=== PATIENT | male | born 1940 | race Caucasian/White ===

== ENCOUNTER → 2016-11-21 | Outpatient (CLI) | payer OTHER ==
[~2016-11-21] MED LIST: AGG PO; ALBUAER19 INH; ALEN70TA2 PO; ATV5 PO; BIOT1TAB2 PO; BIOTCAP2 PO; CALC600T9 PO; CALCTAB65 PO; CIPR-255 PO; CITA10TA8 PO; COEN100C3 PO; DAPT500I IV; DUTA1CAP3 PO; ENZA1CAP PO; FSM70 PO; GABA-112 PO; GLUCTAB7 PO; HYDR2.5C37 TOP; LEUP30IN3 INJ; MULT-506 PO; MULTCAP31 PO; OMEG10007 PO; PRD/25 PO; PROCHLORPERAZINE PO; PSYL55.43 PO; TRAM-10 PO; TYL325X PO; UMEC1AER INH; VITBC PO; VNTHFA/IN INH; ZCR40 PO
== END | disposition home or self-care (01) ==
LOC: C.MAMM 13:15
PROVIDERS: ATTEND Family Medicine
DX: M81.0 Age-related osteoporosis without current pathological fracture (principal)

== ENCOUNTER 2016-11-25 16:00 | Inpatient (IN) | payer OTHER ==
[~2016-11-25] VITALS: Ht 162.6 cm; Wt 65.8 kg
[~2016-11-25 16:00] MED LIST changes: -ATV5 PO; -BIOT1TAB2 PO; -BIOTCAP2 PO; -CALCTAB65 PO; -DAPT500I IV; -ENZA1CAP PO; -FSM70 PO; -OMEG10007 PO; -TRAM-10 PO; -VNTHFA/IN INH
--- NOTE | 2016-11-25 16:36 | EMERGENCY ROOM VISIT NOTE ---
History First contact with patient: 16:20 Chief Complaint: REFERRED BY DOCTOR Stated Complaint: KIDNEY PROBLEMS, SENT BY DOCTOR History of Present Illness The patient is a 76 year old male who presents to the Emergency Room upon referral by his PCP after routine lab work showed acutely elevated creatinine of 6.4 from a baseline of ~2.1. Of note the patient has a background history of prostate cancer s/p nephrostomy in Dec 2015 (performed in [place]), s/p ureteral stent insertion in Aug 2016 ( performed by [facility] urologist, Dr. Holden). Currently, the patient is relatively asymptomatic. He admits to decreased volumes of urine being produced in the last few days. When asked about PO intake of fluids, he admits that he doesn't drink a lot of water, perhaps 2-3 cups of coffee daily and 4-5 glasses of water daily, on his 's urging. She states that he has recently (~3 weeks ago) been started on Meloxicam and Zandia , and he received strict instructions to drink 10-12 glasses of water daily, which he does not do. Upon receiving his first set of lab results today since commencing the medication, patient's PCP Dr. Stewart, advised patient to stop Meloxicam and present to ED. Patient has longstanding frequency symptoms and he believes that this symptom has persisted in the last few days, with only a decrease in urine volume. He denies dysuria and hematuria. He is unsure of change in concentration or colour of his urine. He claims no flank pain, although he has long standing back pain. He also admits to some testicular soreness which he has been previously told is a result from pelvic fullness secondary to enlarged lymph nodes. He has had generalized weakness with occasional nausea and dizziness without focal neurological complaints of late. Patient denies history of kidney stone. Review of Systems See HPI for pertinent positives and negatives. A total of ten systems were reviewed and were otherwise negative. Past Medical/Surgical History Medical Problems: (1) Acute renal failure (2) Hyperkalemia Family History Patient reports no known family medical history. Social History Smoking Status: Current Every Day Smoker Marital Status: Housing Status: lives with family Occupation Status: retired Current/Historical Medications Scheduled Albuterol Inhaler (Ventolin Inhaler), 2 PUFFS INH Q4H Alendronate Sodium (Fosamax), 70 MG PO WK Biotin (Biotin 5000), 1 CAP PO DAILY Calcium Carbonate-Vitamin D (Calcium + D), 1 TAB PO NOON/HS Citalopram Hydrobromide (Celexa), 10 MG PO QPM Coenzyme Q10 (Ubidecarenone) (Co Q-10), 100 MG PO QPM Dipyridamole/Aspirin (Aggrenox 25-200 mg), 1 CAP PO BID Dutasteride (Dutasteride), 0.5 MG PO QAM Enzalutamide (Xtandi), 4 TABS PO DAILY Fish Oil ([place]-3), 1 CAP PO DAILY Gabapentin (Neurontin), 100 MG PO BID Iwcovcuouvz-Edvxpvkwklx-Sux C- (Glucosamine Chondroitin), 1 TAB PO NOON Hydrocortisone 2.5% (Rectal) (Anusol-Hc 2.5%), 1 APPLN TOP PRN Leuprolide Acetate (Lupron Depot), 1 DOSE INJ [id number] Multiple Vitamins W/ Minerals (Ocuvite Lutein), 1 CAP PO NOON Multivitamin (Multivitamin), 1 TAB PO NOON Psyllium (Metamucil Powder), 1 PACK PO DAILY Simvastatin (Simvastatin), 40 MG PO QPM Umeclidinium-Vilanterol (Anoro Ellipta 62.5-25 Mcg/INH), 1 PUFF INH DAILY Vitamin B Complex (Vitamin B Complex), 1 TAB PO NOON Scheduled PRN Tramadol (Ultram), 50-100 MG PO QID PRN for Pain Allergies Coded Allergies: Azithromycin (Verified Allergy, Unknown, HEART STOPPED, 09/12/16) Horse Serum Proteins (Verified Allergy, Unknown, RASH,JOINTS WERE AFFECTED , 09/12/16) Tetanus Toxoid (Verified Allergy, Unknown, UNKNOWN, 09/12/16) Physical Exam Vital Signs Date Time Temp Pulse Resp B/P Pulse Ox O2 Delivery O2 Flow Rate FiO2 11/25/16 20:51 79 18 184/93 95 Room Air 11/25/16 19:52 76 18 189/102 95 Room Air 11/25/16 18:50 73 22 185/93 97 Room Air 11/25/16 17:39 68 22 177/92 98 Room Air 11/25/16 16:02 36.5 74 22 173/87 96 Room Air Physical Exam GENERAL: alert, well appearing, thin, sitting in bed, no acute distress, non- toxic HEAD: Normocephalic, atraumatic. No sinus tenderness. EYES: PERRL, EOMI, normal conjunctiva OROPHARYNX: no exudate, no erythema, lips, buccal mucosa, and tongue normal and mucous membranes are dry NECK: supple, no nuchal rigidity, no adenopathy, non-tender LUNGS: Clear to auscultation. Normal chest wall mechanics, good air entry. No crepitations, crackles, or wheezes HEART: no murmurs, S1 normal and S2 normal CHEST: No reproducible tenderness. ABDOMEN: abdomen soft, non-tender, some suprapubic tenderness on palpation, normo-active bowel sounds, no masses, no rebound or guarding. BACK: Back is symmetrical on inspection, no deformities, mild midline tenderness , no CVA tenderness. SKIN: Warm, pink, dry. No erythema, rashes, or bruising. EXTREMITIES: Grossly normal. Moving all 4 limbs, strength 5/5. No pitting edema. Calves non tender. NEURO: Alert, Ox3. No focal deficits. Normal sensorium, cranial nerves II-XII grossly intact, normal speech. PSYCH: Mood and affect appropriate. Medical Decision & Procedures ER Provider Diagnostic Interpretation: ABDOMEN AND PELVIS CT WITHOUT CONTRAST CT DOSE: 443.29 mGy.cm HISTORY: worsening renal function. assess ureter patency TECHNIQUE: Multiaxial CT images of the abdomen and pelvis were performed without the use of intravenous and oral contrast according to the standard department stone protocol. COMPARISON STUDY: Abdomen and pelvis CT 10/30/2016. FINDINGS: Similar appearance of the large mass extending superiorly from the prostate gland which measures 8.0 x 7.6 cm. There is probable adjacent to the posterior bladder wall with right bladder wall thickening. This is also unchanged. A right ureteral stent is in good position. Moderate to severe right-sided hydroureteronephrosis remains unchanged. There is been interval development of mild left hydroureteronephrosis to the level of the distal ureter as it crosses the pelvic mass. This likely represents interval invasion/compression from the large mass. The sigmoid colon is draped superiorly over the mass. There are no dilated loops of bowel to suggest an obstruction at this time. Colonic diverticulosis. Small amount of fluid within the anterior pelvis has developed in the interval. The right pelvic sidewall lymphadenopathy is also unchanged. This measures 3.5 cm. Normal appendix. No bowel wall thickening or obstruction. Trace bilateral pleural effusions. Small fat-containing right-sided Bochdalek hernia. Bibasilar densities favor atelectasis. No pneumoperitoneum. No pneumatosis. No suspicious lytic or blastic osseous lesions. The unenhanced liver, gallbladder, pancreas, and adrenal glands are unremarkable. Stable appearance to the spleen. Note, the mass encases the distal right ureter/stent. This is also unchanged. IMPRESSION: 1. Similar appearance to the large mass extending superiorly from the prostate gland and right pelvic sidewall lymphadenopathy. 2. Interval development of mild left hydroureteronephrosis to the level of the distal left ureter as it crosses the large mass. This likely represents compression or invasion from the mass. 3. No change in the moderate to severe right-sided hydroureteronephrosis. The right ureteral stent is in good position. 4. Trace bilateral pleural effusions. Laboratory Results 11/25/16 17:10 Red Blood Count 3.18, Mean Corpuscular Volume 88.7, Mean Corpuscular Hemoglobin 29.2, Mean Corpuscular Hemoglobin Concent 33.0, Mean Platelet Volume 9.8, Neutrophils (%) (Auto) 55.0, Lymphocytes (%) (Auto) 28.0, Monocytes (%) (Auto) 9.7, Eosinophils (%) (Auto) 6.7, Basophils (%) (Auto) 0.4, Neutrophils # (Auto) 2.71, Lymphocytes # (Auto) 1.38, Monocytes # (Auto) 0.48, Eosinophils # (Auto) 0.33, Basophils # (Auto) 0.02 Test 11/25/16 17:10 White Blood Count 4.93 K/uL (4.8-10.8) Red Blood Count 3.18 M/uL (4.7-6.1) Hemoglobin 9.3 g/dL (14.0-18.0) Hematocrit 28.2 % (42-52) Mean Corpuscular Volume 88.7 fL (80-100) Mean Corpuscular Hemoglobin 29.2 pg (25-34) Mean Corpuscular Hemoglobin Concent 33.0 g/dl (32-36) Platelet Count 253 K/uL (130-400) Mean Platelet Volume 9.8 fL (7.4-10.4) Neutrophils (%) (Auto) 55.0 % Lymphocytes (%) (Auto) 28.0 % Monocytes (%) (Auto) 9.7 % Eosinophils (%) (Auto) 6.7 % Basophils (%) (Auto) 0.4 % Neutrophils # (Auto) 2.71 K/uL (1.4-6.5) Lymphocytes # (Auto) 1.38 K/uL (1.2-3.4) Monocytes # (Auto) 0.48 K/uL (0.11-0.59) Eosinophils # (Auto) 0.33 K/uL (0-0.5) Basophils # (Auto) 0.02 K/uL (0-0.2) RDW Standard Deviation 51.8 fL (36.4-46.3) RDW Coefficient of Variation 15.8 % (11.5-14.5) Immature Granulocyte % (Auto) 0.2 % Immature Granulocyte # (Auto) 0.01 K/uL (0.00-0.02) Urine Color YELLOW Urine Appearance CLEAR (CLEAR) Urine pH 5.5 (4.5-7.5) Urine Specific [place] 1.014 (1.000-1.030) Urine Protein TRACE (NEG) Urine Glucose (UA) NEG (NEG) Urine Ketones NEG (NEG) Urine Occult Blood 2+ (NEG) Urine Nitrite NEG (NEG) Urine Bilirubin NEG (NEG) Urine Urobilinogen NEG (NEG) Urine Leukocyte Esterase LARGE (NEG) Urine WBC (Auto) >30 /hpf (0-5) Urine RBC (Auto) 10-30 /hpf (0-4) Urine Hyaline Casts (Auto) 1-5 /lpf (0-5) Urine Epithelial Cells (Auto) >30 /lpf (0-5) Urine Bacteria (Auto) NEG (NEG) Urine Renal Epithelial Cells /lpf (0-5) Phosphorus Level 5.0 mg/dl (2.5-4.9) Magnesium Level 2.8 mg/dl (1.8-2.4) Total Bilirubin 0.2 mg/dl (0.2-1) Direct Bilirubin < 0.1 mg/dl (0-0.2) Aspartate Amino Transf (AST/SGOT) 34 U/L (15-37) Alanine Aminotransferase (ALT/SGPT) 31 U/L (12-78) Alkaline Phosphatase 92 U/L (45-117) Total Protein 6.4 gm/dl (6.4-8.2) Albumin 3.1 gm/dl (3.4-5.0) Medications Administered Medications (Trade) Dose Ordered Sig/Clare Route Start Time Stop Time Status Last Admin Dose Admin Sodium Chloride (Nss 1000ml) 1,000 ml @ 500 mls/hr Q2H IV 11/25/16 17:30 11/25/16 17:38 DC 11/25/16 17:38 500 MLS/HR ECG Indication: weakness Rhythm: normal sinus Findings: no acute ischemic change, no ectopy, other (Prolonged HI interval) Comparison ECG Date: no prior available Medical Decision 76 year old male presented with acute renal failure The patient was evaluated in room C5. A complete history and physical exam was performed. Etiologies such as dehydration, infection, obstruction, electrolyte abnormalities, metabolic abnormalities, drug-induced etc. were entertained. Patient was given declined analgesia for symptom relief. 1L of IV normal saline was given to improve hydration status. EKG showed normal sinus rhythm with mild HI prolongation, but no signs of ischemic changes Lab work was performed. CBC showed anemia with hemoglobin 9.3 but no leukocytosis. BMP showed hyperkalemia, creatinine 6.3, hypercalcemia and elevated levels of magnesium and phosphorus, LFTs were all within normal limits. Urine screen was contaminated but urinalysis showed trace protein and occult blood Urology was consulted and advised for CT scan. CT abdomen pelvis showed similar appearance to the large mass extending superiorly from the prostate gland and right pelvic sidewall lymphadenopathy; interval development of mild left hydroureteronephrosis, likely representing compression or invasion from the mass. No change was noted in the moderate to severe right-sided hydroureteronephrosis with the right ureteral stent observed to be in good position. Trace bilateral pleural effusions were also seen. Likely diagnosis is acute renal failure contributed by medication and dehydration. As such, case consulted with [facility] hospitalist, Dr. Lynn, who was agreeable to assess the patient for admission. Patient and family understood and agreeable with care plan. Departure Information Referrals Jesus Stewart M.D. (PCP) Patient Instructions A Signature Page, My [facility]
--- NOTE | 2016-11-25 17:05 | EMERGENCY ROOM VISIT NOTE ---
ED Visit Note First contact with patient: 16:20 Patient evaluated with resident. 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 Holden presents to the emergency room with family after outpatient laboratory revealed a significantly elevated creatinine. He was advised to present to the emergency room for admission. Patient and family note increasing generalized weakness with occasional nausea and dizziness without focal neuro complaints. Patient noted to be on Zandia and meloxicam for back pain. Hospital admission arranged and consultation obtained with Urology who advised CT to assess ureters/extent of prostate cancer.
[2016-11-25] MEDS ORDERED: ENZA1CAP PO (17:27)
[2016-11-25] MEDS ORDERED: OMEG10007 PO (17:27)
[2016-11-25] MEDS ORDERED: TRAM-10 PO (17:27)
[2016-11-25] MEDS ORDERED: BIOTCAP2 PO (17:27)
[2016-11-25] MEDS ORDERED: AGG PO (17:27)
[2016-11-25] MEDS ORDERED: SODIUM CHLORIDE 0.9% 1000ML 1,000 ML IV SCH (17:30)
[2016-11-25] MEDS ORDERED: SODIUM CHLORIDE 0.9% 1000ML 1,000 ML IV STA (17:37)
[2016-11-25 17:45] LABS: BASO % 0.4 %; BASO ABS # 0.02 K/uL (0-0.2); COMPLETE YES; EOS % 6.7 %; HEMATOCRIT 28.2 % (42-52); IG% 0.2 %; LYMPH ABS # 1.38 K/uL (1.2-3.4); MEAN CELL VOLUME 88.7 fL (80-100); MEAN CORPUSCULAR HEMOGLOBIN 29.2 pg (25-34); MEAN PLATELET VOLUME 9.8 fL (7.4-10.4); MONO % 9.7 %; PLATELET COUNT 253 K/uL (130-400); RED BLOOD COUNT 3.18 M/uL (4.7-6.1); WHITE BLOOD COUNT 4.93 K/uL (4.8-10.8)
[2016-11-25 17:54] LABS: URINE APPEARANCE CLEAR (CLEAR); URINE BILIRUBIN NEG (NEG); URINE COLOR YELLOW; URINE EPITHELIAL CELL AUTO >30 /lpf (0-5); URINE NITRITE NEG (NEG); URINE PH 5.5 (4.5-7.5); URINE SPECIFIC GRAVITY 1.014 (1.000-1.030); UROBILINOGEN NEG (NEG)
[2016-11-25 17:56] LABS: MANUAL MICROSCOPIC REQUIRED? NO; REVIEW REQ? YES
[2016-11-25 18:26] LABS: BUN/CREATININE RATIO 8.9 (10-20); CALCIUM 10.6 mg/dl (8.5-10.1); MAGNESIUM 2.8 mg/dl (1.8-2.4)
[2016-11-25 18:27] LABS: CREATININE 6.3 mg/dl (0.60-1.40)
[2016-11-25 20:16] LABS: ALKALINE PHOSPHATASE 92 U/L (45-117); ALT/SGPT 31 U/L (12-78); AST/SGOT 34 U/L (15-37)
--- NOTE | 2016-11-25 20:37 | DIAGNOSTIC IMAGING REPORT ---
ABDOMEN AND PELVIS CT WITHOUT CONTRAST CT DOSE: 443.29 mGy.cm HISTORY: worsening renal function. assess ureter patency TECHNIQUE: Multiaxial CT images of the abdomen and pelvis were performed without the use of intravenous and oral contrast according to the standard department stone protocol. COMPARISON STUDY: Abdomen and pelvis CT 10/30/2016. FINDINGS: Similar appearance of the large mass extending superiorly from the prostate gland which measures 8.0 x 7.6 cm. There is probable adjacent to the posterior bladder wall with right bladder wall thickening. This is also unchanged. A right ureteral stent is in good position. Moderate to severe right-sided hydroureteronephrosis remains unchanged. There is been interval development of mild left hydroureteronephrosis to the level of the distal ureter as it crosses the pelvic mass. This likely represents interval invasion/compression from the large mass. The sigmoid colon is draped superiorly over the mass. There are no dilated loops of bowel to suggest an obstruction at this time. Colonic diverticulosis. Small amount of fluid within the anterior pelvis has developed in the interval. The right pelvic sidewall lymphadenopathy is also unchanged. This measures 3.5 cm. Normal appendix. No bowel wall thickening or obstruction. Trace bilateral pleural effusions. Small fat-containing right-sided Bochdalek hernia. Bibasilar densities favor atelectasis. No pneumoperitoneum. No pneumatosis. No suspicious lytic or blastic osseous lesions. The unenhanced liver, gallbladder, pancreas, and adrenal glands are unremarkable. Stable appearance to the spleen. Note, the mass encases the distal right ureter/stent. This is also unchanged. IMPRESSION: 1. Similar appearance to the large mass extending superiorly from the prostate gland and right pelvic sidewall lymphadenopathy. 2. Interval development of mild left hydroureteronephrosis to the level of the distal left ureter as it crosses the large mass. This likely represents compression or invasion from the mass. 3. No change in the moderate to severe right-sided hydroureteronephrosis. The right ureteral stent is in good position. 4. Trace bilateral pleural effusions. Electronically signed by: Pablo Tim M.D. 11/25/2016 8:35 PM Dictated Date/Time: 11/25/2016 8:26 PM
[2016-11-25] MEDS: ALBUTEROL HFA 8 GM INHALER INH SCH (21:00)
[2016-11-25] MEDS ORDERED: ACETAMINOPHEN 325 MG TAB PO PRN (21:00)
[2016-11-25] MEDS ORDERED: TRAMADOL HCL 50 MG TAB PO PRN (21:00)
[2016-11-25] MEDS ORDERED: ZOLPIDEM TARTRATE 5 MG TAB PO PRN (21:00)
[2016-11-25] MEDS ORDERED: SIMVASTATIN 40 MG TAB PO SCH (21:00)
[2016-11-25] MEDS ORDERED: CITALOPRAM 20 MG TAB PO SCH (21:00)
[2016-11-25] MEDS ORDERED: HYDROCORTISONE HC 2.5% CRM 30GM TUBE EXT PRN (21:00)
--- NOTE | 2016-11-25 21:36 | Urology Consultation ---
History General Date of Service: Nov 25, 2016. Primary Care Physician: Jesus Stewart M.D. History of Present Illness Patient's a 76-year-old white male with hormone refractory metastatic prostate cancer. He was seen in our office by my partner in October 2016 and was put on Xtandi and meloxicam. He says since starting these 2 medications he's not feeling well. Recently his urine output has declined. He does have some back pain which he has had in the past. He denies any flank pain he's had no fevers. He was seen by his primary care physician today because he was feeling poorly blood work showed that he is in acute renal failure with a creatinine of 6 he was sent to the emergency room here for further evaluation. CT scan was done which showed no change in the right-sided hydronephrosis when compared to the CT scan from October which I reviewed both x-rays myself but he is now developing left-sided hydronephrosis which is new. Laboratory Last 24 Hours Test 11/25/16 17:10 11/25/16 21:04 White Blood Count 4.93 K/uL Red Blood Count 3.18 M/uL Hemoglobin 9.3 g/dL Hematocrit 28.2 % Mean Corpuscular Volume 88.7 fL Mean Corpuscular Hemoglobin 29.2 pg Mean Corpuscular Hemoglobin Concent 33.0 g/dl Platelet Count 253 K/uL Mean Platelet Volume 9.8 fL Neutrophils (%) (Auto) 55.0 % Lymphocytes (%) (Auto) 28.0 % Monocytes (%) (Auto) 9.7 % Eosinophils (%) (Auto) 6.7 % Basophils (%) (Auto) 0.4 % Neutrophils # (Auto) 2.71 K/uL Lymphocytes # (Auto) 1.38 K/uL Monocytes # (Auto) 0.48 K/uL Eosinophils # (Auto) 0.33 K/uL Basophils # (Auto) 0.02 K/uL RDW Standard Deviation 51.8 fL RDW Coefficient of Variation 15.8 % Immature Granulocyte % (Auto) 0.2 % Immature Granulocyte # (Auto) 0.01 K/uL Urine Color YELLOW Urine Appearance CLEAR Urine pH 5.5 Urine Specific [place] 1.014 Urine Protein TRACE Urine Glucose (UA) NEG Urine Ketones NEG Urine Occult Blood 2+ Urine Nitrite NEG Urine Bilirubin NEG Urine Urobilinogen NEG Urine Leukocyte Esterase LARGE Urine WBC (Auto) >30 /hpf Urine RBC (Auto) 10-30 /hpf Urine Hyaline Casts (Auto) 1-5 /lpf Urine Epithelial Cells (Auto) >30 /lpf Urine Bacteria (Auto) NEG Urine Renal Epithelial Cells /lpf Sodium Level 142 mmol/L Potassium Level 6.0 mmol/L Chloride Level 110 mmol/L Carbon Dioxide Level 23 mmol/L Anion Gap 9.0 mmol/L Blood Urea Nitrogen 56 mg/dl Creatinine 6.30 mg/dl Est Creatinine Clear Calc Drug Dose 8.4 ml/min Estimated GFR () 9.1 Estimated GFR (Non- 7.9 BUN/Creatinine Ratio 8.9 Random Glucose 83 mg/dl Calcium Level 10.6 mg/dl Phosphorus Level 5.0 mg/dl Magnesium Level 2.8 mg/dl Total Bilirubin 0.2 mg/dl Direct Bilirubin < 0.1 mg/dl Aspartate Amino Transf (AST/SGOT) 34 U/L Alanine Aminotransferase (ALT/SGPT) 31 U/L Alkaline Phosphatase 92 U/L Total Protein 6.4 gm/dl Albumin 3.1 gm/dl Past History cancer - prostate, CVA/TIA/stroke, hypertension, other Past Surgical History: orthopedic surgery, other Family History Patient reports no known family medical history. Social History Hx Tobacco Use In Past Year?: Yes (SMOKES 1/2 PPD X 60 YRS ) Alcohol: never Marital status: Housing status: lives with family Occupation status: retired Allergies Coded Allergies: Azithromycin (Verified Allergy, Unknown, HEART STOPPED, 09/12/16) Horse Serum Proteins (Verified Allergy, Unknown, RASH,JOINTS WERE AFFECTED , 09/12/16) Tetanus Toxoid (Verified Allergy, Unknown, UNKNOWN, 09/12/16) Medications Home Medications: Home Meds and Scripts Medications Dose Route/Sig Max Daily Dose Days Date Category Dose Instructions Xtandi (Enzalutamide) 40 Mg Cap 4 Tabs PO DAILY 11/25/16 Reported Ultram (Tramadol HCl) 50 Mg Tab 50-100 Mg PO QID PRN 11/25/16 Reported [place]-3 (Fish Oil) 1 Ea Cap 1 Cap PO DAILY 11/25/16 Reported Biotin 5000 (Biotin) 5 Mg Cap 1 Cap PO DAILY 11/25/16 Reported Aggrenox 25-200 mg (Dipyridamole/Aspirin) 1 Cap Cap 1 Cap PO BID 11/25/16 Reported Lupron Depot (Leuprolide Acetate) 30 Mg Kit 1 Dose INJ [id number] 08/30/16 Reported LAST DOSE 1 MONTH AGO Multivitamin (Multivitamins) Tab 1 Tab PO NOON 08/30/16 Reported Anusol-Hc 2.5% (Hydrocortisone 2.5% (Rectal)) 2.5 % Cre 1 Appln TOP PRN 7 08/30/16 Reported Neurontin (Gabapentin) 100 Mg Cap 100 Mg PO BID 08/30/16 Reported Calcium + D (Calcium Carbonate-Vitamin D) 1 Tab Tab 1 Tab PO NOON/HS 08/30/16 Reported Celexa (Citalopram Hydrobromide) 10 Mg Tab 10 Mg PO QPM 08/30/16 Reported Anoro Ellipta 62.5-25 Mcg/INH (Umeclidinium-Vilanterol) 1 Aer Aer 1 Puff INH DAILY 08/30/16 Reported Metamucil Powder (Psyllium Hydrophilic Mucilloid) Powd 1 Pack PO DAILY 01/10/16 Reported Ventolin Inhaler (Albuterol) Aers 2 Puffs INH Q4H 09/26/15 Reported Simvastatin 40 Mg Tab 40 Mg PO QPM 09/26/15 Reported Ocuvite Lutein (Multiple Vitamins W/ Minerals) 1 Cap Cap 1 Cap PO NOON 09/26/15 Reported Glucosamine Chondroitin (Ricrsnlsfxa-Inygnfeagly-Oyx C-) 1 Tab Tab 1 Tab PO NOON 09/26/15 Reported Dutasteride 0.5 Mg Cap 0.5 Mg PO QAM 09/26/15 Reported Co Q-10 (Coenzyme Q10 (Ubidecarenone)) 100 Mg Cap 100 Mg PO QPM 09/26/15 Reported Vitamin B Complex 1 Tab Tab 1 Tab PO NOON 09/26/15 Reported Fosamax (Alendronate Sodium) 70 Mg Tab 70 Mg PO WK 09/26/15 Reported WEDNESDAYS Inpatient Medications: Current Inpatient Medications Medications (Trade) Dose Ordered Sig/Clare Route Start Time Stop Time Status Last Admin Dose Admin Sodium Chloride (Nss 1000ml) 1,000 ml @ 100 mls/hr Q10H IV 11/25/16 20:52 12/25/16 20:51 UNV Acetaminophen (Tylenol Tab) 650 mg Q4H PRN PO 11/25/16 21:00 12/25/16 20:59 Zolpidem Tartrate (Ambien Tab) 5 mg HSZ PRN PO 11/25/16 21:00 12/25/16 20:59 Albuterol (Ventolin Hfa Inhaler) 2 puffs Q4H INH 11/25/16 21:00 12/25/16 20:59 Citalopram Hydrobromide (celeXA TAB) 10 mg QPM PO 11/25/16 21:00 12/25/16 20:59 Dipyridamole/ Aspirin (Aggrenox 200MG/ 25MG Cap) 1 cap BID PO 11/25/16 21:00 12/25/16 20:59 Gabapentin (Neurontin Cap) 100 mg BID PO 11/25/16 21:00 12/25/16 20:59 Hydrocortisone (Proctozone Hc 2.5% Crm) 1 appln PRN EXT 11/25/16 21:00 12/25/16 20:59 UNV Multivitamins (Multivitamin Tab) 1 tab DAILY PO 11/26/16 09:00 12/26/16 08:59 Psyllium Hydrophilic Mucilloid (Metamucil Powder) 1 pkt DAILY PO 11/26/16 09:00 12/26/16 08:59 Simvastatin (Zocor Tab) 40 mg QPM PO 11/25/16 21:00 12/25/16 20:59 Tramadol HCl (Ultram Tab) 50 mg QID PRN PO 11/25/16 21:00 12/25/16 20:59 Vitamin B Complex (Vitamin B Complex) 1 tab DAILY PO 11/26/16 09:00 12/26/16 08:59 Nicotine (Nicoderm Cq 7 Mg Patch) 1 patch QAM TD 11/26/16 09:00 12/26/16 08:59 Miscellaneous (Remove Nicoderm Patch) 1 ea HS N/A 11/26/16 21:00 12/26/16 20:59 Physical Exam Vital Signs: Vital Signs Past 12 Hours Date Time Temp Pulse Resp B/P Pulse Ox O2 Delivery O2 Flow Rate FiO2 11/25/16 20:51 79 18 184/93 95 Room Air 11/25/16 19:52 76 18 189/102 95 Room Air 11/25/16 18:50 73 22 185/93 97 Room Air 11/25/16 17:39 68 22 177/92 98 Room Air 11/25/16 16:02 36.5 74 22 173/87 96 Room Air Physical Exam: General Appearance: WD/WN, no apparent distress ENT: hearing grossly normal Respiratory/Chest: no respiratory distress Neurologic/Psychiatric: alert, normal mood/affect Assessment & Plan Assessment & Plan Assessment Metastatic prostate cancer hormone refractory Patient has had right hydronephrosis and has an indwelling stent that there is not appear to be any change from the CT scan in October on the right side. On the left side there is new hydronephrosis. Patient also appears to be dehydrated and says he has not been taking in much in the way of fluids over the last few days. At this point I don't think changing the stent on the right is going to make much of a difference as again there is really no difference in the CT scans from October and today's on the right side and his creatinine was okay in October. I do believe that part of the problem is dehydration he is currently getting IV fluids The medications especially meloxicam may be contributing to some of his renal problems and also the new hydronephrosis on the left. He has bulky disease in the prostate so placing a retrograde stent on the left will not be possible he will probably need to be sent to [place] and have a nephrostomy tube placed on the left as he did on the right which can then later be changed into an indwelling stent I don't know that this needs to be done emergently tonight I will leave that up to the medical team I will discuss this with Dr. Holden who is been following him since his diagnosis
[2016-11-25 21:50] VITALS: BP 156/83; PULSE 72; TEMP 36.7; O2SAT 95; Ht 162.6 cm; Wt 65.8 kg
[2016-11-25 22:19] LABS: BUN/CREATININE RATIO 8.6 (10-20); CALCIUM 10.2 mg/dl (8.5-10.1); FERRITIN 308.3 ng/ml (8.0-388.0); POTASSIUM 5.6 mmol/L (3.5-5.1)
[2016-11-25 22:20] LABS: CREATININE 6.4 mg/dl (0.60-1.40)
[2016-11-25] MEDS: DIPYRIDAMOLE/ASPIRIN CAP PO SCH (22:48)
[2016-11-25] MEDS: GABAPENTIN 100 MG CAP PO SCH (22:49)
[2016-11-25] MEDS: SODIUM CHLORIDE 0.9% 1000ML 1,000 ML IV SCH (22:54)
[2016-11-26] MEDS: ALBUTEROL HFA 8 GM INHALER INH SCH ×5 (01:00→17:03)
--- NOTE | 2016-11-26 02:01 | History and Physical ---
History & Physical Date & Time of Service: Nov 26, 2016 at 01:37 Chief Complaint: Acute Renal Failure,Hyperkalemia Primary Care Physician: Jesus Stewart M.D. History of Present Illness Source: patient, family The patient is a 76 her old male told to come to the emergency department by his outpatient physician due to an elevated creatinine. The patient himself has no complaints. He does follow with Dr. Martin Holden from urology, and has had a right ureteral stent. He reportedly was started on meloxicam a few weeks ago and Zantia by Dr. Holden. He has had a previous creatinine which hovers in the range of 2.1-2.5. He has chronic low back pain for which the meloxicam was prescribed. His family reports that he's had decreased oral intake over the past few weeks, and in concert with that, as a decreased urine output as well. He does have a history of prostate cancer Family History Patient reports no known family medical history. Social History Smoking Status: Current Every Day Smoker Smokeless Tobacco Use: No Alcohol Use: none Drug Use: none Marital Status: Housing status: lives with family Occupational Status: retired Multi-Drug Resistant Organisms History of MDRO: No Allergies Coded Allergies: Azithromycin (Verified Allergy, Unknown, HEART STOPPED, 09/12/16) Horse Serum Proteins (Verified Allergy, Unknown, RASH,JOINTS WERE AFFECTED , 09/12/16) Tetanus Toxoid (Verified Allergy, Unknown, UNKNOWN, 09/12/16) Home Medications Scheduled Albuterol Inhaler (Ventolin Inhaler), 2 PUFFS INH Q4H Alendronate Sodium (Fosamax), 70 MG PO WK Biotin (Biotin 5000), 1 CAP PO DAILY Calcium Carbonate-Vitamin D (Calcium + D), 1 TAB PO NOON/HS Citalopram Hydrobromide (Celexa), 10 MG PO QPM Coenzyme Q10 (Ubidecarenone) (Co Q-10), 100 MG PO QPM Dipyridamole/Aspirin (Aggrenox 25-200 mg), 1 CAP PO BID Dutasteride (Dutasteride), 0.5 MG PO QAM Enzalutamide (Xtandi), 4 TABS PO DAILY Fish Oil ([place]-3), 1 CAP PO DAILY Gabapentin (Neurontin), 100 MG PO BID Vtlfrarrfvt-Vdbosrtvqei-Jcq C- (Glucosamine Chondroitin), 1 TAB PO NOON Hydrocortisone 2.5% (Rectal) (Anusol-Hc 2.5%), 1 APPLN TOP PRN Leuprolide Acetate (Lupron Depot), 1 DOSE INJ [id number] Multiple Vitamins W/ Minerals (Ocuvite Lutein), 1 CAP PO NOON Multivitamin (Multivitamin), 1 TAB PO NOON Psyllium (Metamucil Powder), 1 PACK PO DAILY Simvastatin (Simvastatin), 40 MG PO QPM Umeclidinium-Vilanterol (Anoro Ellipta 62.5-25 Mcg/INH), 1 PUFF INH DAILY Vitamin B Complex (Vitamin B Complex), 1 TAB PO NOON Scheduled PRN Tramadol (Ultram), 50-100 MG PO QID PRN for Pain Review of Systems The patient denies chest pain, palpitations, shortness of breath, cough, lower extremity swelling, vision change, hearing change, sore throat, fevers, chills, sweats, weight change, fatigue, nausea, vomiting, abdominal pain, pelvic pain, blood in urine or stool, dysuria, urinary frequency or urgency, lightheadedness , dizziness, headache, rash, abnormal bruising or bleeding, imbalance, focal weakness, numbness or tingling in arms or legs, night sweats, or allergy symptoms. The review of systems is otherwise negative other than for that already noted above, and at least 10 systems have been reviewed. Physical Exam Vital Signs Date Time Temp Pulse Resp B/P Pulse Ox O2 Delivery O2 Flow Rate FiO2 11/25/16 23:59 Room Air 11/25/16 21:50 36.7 72 18 156/83 95 Room Air 11/25/16 21:40 36.5 77 18 180/90 94 11/25/16 21:28 77 18 180/90 94 Room Air 11/25/16 20:51 79 18 184/93 95 Room Air 11/25/16 19:52 76 18 189/102 95 Room Air 11/25/16 18:50 73 22 185/93 97 Room Air 11/25/16 17:39 68 22 177/92 98 Room Air 11/25/16 16:02 36.5 74 22 173/87 96 Room Air The patient is awake, well-developed and adequately nourished, alert and oriented 3, normocephalic and atraumatic, lying in bed and in no acute distress. HEENT--PERRL, mucous membranes and oropharynx dry. Neck--supple, no JVD or bruits, thyroid normal, trachea midline, no adenopathy. Heart--normal S1 and S2, no extra beats, no murmurs, rubs or gallops. Lungs--clear bilaterally with good air movement, no respiratory distress, no accessory muscle use. Abdomen--normal bowel sounds and soft, nontender and nondistended, no hernias or masses, no organomegaly. Extremities--no cyanosis, clubbing or edema. There are good distal pulses b/l. Dermatologic--normal skin turgor, normal color, warm and dry, no abnormal lymph nodes, no rash. Neurologic--cranial nerves II through XII grossly intact. Psychiatric--normal affect. Diagnostics Laboratory Results Results Past 24 Hours Test 11/25/16 17:10 11/25/16 21:35 Range/Units White Blood Count 4.93 4.8-10.8 K/uL Red Blood Count 3.18 4.7-6.1 M/uL Hemoglobin 9.3 14.0-18.0 g/dL Hematocrit 28.2 42-52 % Mean Corpuscular Volume 88.7 80-100 fL Mean Corpuscular Hemoglobin 29.2 25-34 pg Mean Corpuscular Hemoglobin Concent 33.0 32-36 g/dl Platelet Count 253 130-400 K/uL Mean Platelet Volume 9.8 7.4-10.4 fL Neutrophils (%) (Auto) 55.0 % Lymphocytes (%) (Auto) 28.0 % Monocytes (%) (Auto) 9.7 % Eosinophils (%) (Auto) 6.7 % Basophils (%) (Auto) 0.4 % Neutrophils # (Auto) 2.71 1.4-6.5 K/uL Lymphocytes # (Auto) 1.38 1.2-3.4 K/uL Monocytes # (Auto) 0.48 0.11-0.59 K/uL Eosinophils # (Auto) 0.33 0-0.5 K/uL Basophils # (Auto) 0.02 0-0.2 K/uL RDW Standard Deviation 51.8 36.4-46.3 fL RDW Coefficient of Variation 15.8 11.5-14.5 % Immature Granulocyte % (Auto) 0.2 % Immature Granulocyte # (Auto) 0.01 0.00-0.02 K/uL Urine Color YELLOW Urine Appearance CLEAR CLEAR Urine pH 5.5 4.5-7.5 Urine Specific [place] 1.014 1.000-1.030 Urine Protein TRACE NEG Urine Glucose (UA) NEG NEG Urine Ketones NEG NEG Urine Occult Blood 2+ NEG Urine Nitrite NEG NEG Urine Bilirubin NEG NEG Urine Urobilinogen NEG NEG Urine Leukocyte Esterase LARGE NEG Urine WBC (Auto) >30 0-5 /hpf Urine RBC (Auto) 10-30 0-4 /hpf Urine Hyaline Casts (Auto) 1-5 0-5 /lpf Urine Epithelial Cells (Auto) >30 0-5 /lpf Urine Bacteria (Auto) NEG NEG Urine Renal Epithelial Cells 0-5 /lpf Sodium Level 142 144 136-145 mmol/L Potassium Level 6.0 5.6 3.5-5.1 mmol/L Chloride Level 110 112 98-107 mmol/L Carbon Dioxide Level 23 21 21-32 mmol/L Anion Gap 9.0 11.0 3-11 mmol/L Blood Urea Nitrogen 56 55 7-18 mg/dl Creatinine 6.30 6.40 0.60-1.40 mg/dl Est Creatinine Clear Calc Drug Dose 8.4 8.2 ml/min Estimated GFR () 9.1 8.9 Estimated GFR (Non- 7.9 7.7 BUN/Creatinine Ratio 8.9 8.6 10-20 Random Glucose 83 107 70-99 mg/dl Calcium Level 10.6 10.2 8.5-10.1 mg/dl Phosphorus Level 5.0 2.5-4.9 mg/dl Magnesium Level 2.8 1.8-2.4 mg/dl Total Bilirubin 0.2 0.2-1 mg/dl Direct Bilirubin < 0.1 0-0.2 mg/dl Aspartate Amino Transf (AST/SGOT) 34 15-37 U/L Alanine Aminotransferase (ALT/SGPT) 31 12-78 U/L Alkaline Phosphatase 92 45-117 U/L Total Protein 6.4 6.4-8.2 gm/dl Albumin 3.1 3.4-5.0 gm/dl Iron Level 28 35-175 mcg/dl Total Iron Binding Capacity 228 250-450 mcg/dl Ferritin 308.3 8.0-388.0 ng/ml Vitamin B12 Level 818 211-911 pg/mL Folate > 24.00 >5.38 ng/mL Diagnostic Radiology Patient Name: MARINA DOMINGUEZ Unit Number: [id number] Dictated: 11/25/162025 Transcribed: 11/25/162025 [facility] Printed Date/Time: [~ rep prt dt]/[~ rep prt tm] [~ rep ct labl] - [~ rep ct ivnm] [facility] [place] [address] Dictated: 11/25/162025 Transcribed: 11/25/162025 [facility] Printed Date/Time: [~ rep prt dt]/[~ rep prt tm] [~ rep ct labl] - [~ rep ct ivnm] ABDOMEN AND PELVIS CT WITHOUT CONTRAST CT DOSE: 443.29 mGy.cm HISTORY: worsening renal function. assess ureter patency TECHNIQUE: Multiaxial CT images of the abdomen and pelvis were performed without the use of intravenous and oral contrast according to the standard department stone protocol. COMPARISON STUDY: Abdomen and pelvis CT 10/30/2016. FINDINGS: Similar appearance of the large mass extending superiorly from the prostate gland which measures 8.0 x 7.6 cm. There is probable adjacent to the posterior bladder wall with right bladder wall thickening. This is also unchanged. A right ureteral stent is in good position. Moderate to severe right-sided hydroureteronephrosis remains unchanged. There is been interval development of mild left hydroureteronephrosis to the level of the distal ureter as it crosses the pelvic mass. This likely represents interval invasion/compression from the large mass. The sigmoid colon is draped superiorly over the mass. There are no dilated loops of bowel to suggest an obstruction at this time. Colonic diverticulosis. Small amount of fluid within the anterior pelvis has developed in the interval. The right pelvic sidewall lymphadenopathy is also unchanged. This measures 3.5 cm. Normal appendix. No bowel wall thickening or obstruction. Trace bilateral pleural effusions. Small fat-containing right-sided Bochdalek hernia. Bibasilar densities favor atelectasis. No pneumoperitoneum. No pneumatosis. No suspicious lytic or blastic osseous lesions. The unenhanced liver, gallbladder, pancreas, and adrenal glands are unremarkable. Stable appearance to the spleen. Note, the mass encases the distal right ureter/stent. This is also unchanged. IMPRESSION: 1. Similar appearance to the large mass extending superiorly from the prostate gland and right pelvic sidewall lymphadenopathy. 2. Interval development of mild left hydroureteronephrosis to the level of the distal left ureter as it crosses the large mass. This likely represents compression or invasion from the mass. 3. No change in the moderate to severe right-sided hydroureteronephrosis. The right ureteral stent is in good position. 4. Trace bilateral pleural effusions. Electronically signed by: Pablo Tim M.D. 11/25/2016 8:35 PM Dictated Date/Time: 11/25/2016 8:26 PM The status of this report is Signed. Draft = Not yet reviewed or approved by Radiologist. Signed = Reviewed and approved by Radiologist. <AttendingPhy></AttendingPhy> <FamilyPhy>Martin Holden MD, Urology</ FamilyPhy> <PrimaryPhy>Jesus Stewart M.D.</PrimaryPhy> <UnitNumber>[id number]</ UnitNumber> <VisitNumber>[id number]</VisitNumber> <PatientName>MARINA DOMINGUEZ</PatientName> <DateOfBirth>1940</DateOfBirth> <Location>[facility]</ Location> <ServiceDate>11/25/16</ServiceDate> <MNE>ESINDI</MNE> <OrderingPhy> Gerald Washington MD</OrderingPhy> <OrderingPhyMNE>f rep ord dr ramirez</OrderingPhyMNE > <DictatingPhyMNE>f rep dict dr ramirez</DictatingPhyMNE> <CCListMNE>f rep ct james</ CCListMNE> <AdmittingPhyMNE>f pt admit dr ramirez</AdmittingPhyMNE> <AttendingPhyMNE >f pt attend dr ramirez</AttendingPhyMNE> <ConsultingPhyMNE>f pt consult dr ramirez</ConsultingPhyMNE> <FamilyPhyMNE>f pt fam dr ramirez</FamilyPhyMNE> <OtherPhyMNE>f pt other dr ramirez</OtherPhyMNE> < PrimaryPhyMNE>f pt prim care dr ramirez</PrimaryPhyMNE> <ReferringPhyMNE>f pt referring dr ramirez</ReferringPhyMNE> EKG EKG shows normal sinus rhythm at 66, left axis deviation, with no acute ST-T changes. Impression Assessment and Plan Acute on chronic renal failure--the patient has baseline creatinine of 2.1 2.5, with creatinine upon admission today at 6.3 with a potassium of 6.0. Her follow up laboratories after a liter of NSS revealed a potassium of 5.6 and a creatinine of 6.4. He'll be admitted to the telemetry unit due to the elevated potassium, would not give him calcium IV at this time as he is showing no signs of ectopy and potassium is actually improving after IV fluids. We'll continue normal saline at 100 mils per hour, follow serial BMP and magnesium levels. We' ll hold meloxicam and any other potentially nephrotoxic agents at this time. We 'll continue dutasteride 0.5 mg by mouth every morning. Will increase prednisone from 2.5-5 mg by mouth daily for stress dose. Right ureteral stent--as noted by Dr. Enrique, from urology, there is no need for changing his stent at this time. Anemia of chronic disease --hemoglobin of 9.1 upon admission, which check iron, TIBC, ferritin, vitamin B-12, folic acid levels. Vascular disease--continue Aggrenox 1 capsule by mouth twice a day. Hypercholesterolemia--continue simvastatin 40 mg by mouth every afternoon. Peripheral neuropathy--continue gabapentin 100 mg by mouth twice a day. Depression--continue citalopram 10 mg by mouth every afternoon. Hemorrhoids--continue Anusol HC-2.5% cream applied topically daily when necessary. Nutraceuticals--continue vitamin B complex, multivitamin and glucosamine chondroitin sulfate. Level of Care Telemetry Advanced Directives Existing Advance Directive: No Existing Living Will: Yes Existing Power of Employment Advisor: No Resuscitation Status FULL RESUSCITATION VTE Prophylaxis VTE Risk Assessment Done? Y/N: Yes Risk Level: Moderate Given or contraindicated: SCD's Social Service Consult None Apply
[2016-11-26 04:05] VITALS: BP 155/63; PULSE 76; TEMP 36.6; O2SAT 93
[2016-11-26 07:46] VITALS: BP 158/72; PULSE 70; TEMP 36.8; O2SAT 94
[2016-11-26] MEDS: AVODART~ORDER AWAITING ACTION SCH ×2 (08:00→15:45)
[2016-11-26] MEDS: DIPYRIDAMOLE/ASPIRIN CAP PO SCH (08:15)
[2016-11-26] MEDS: GABAPENTIN 100 MG CAP PO SCH (08:15)
--- NOTE | 2016-11-26 08:27 | Clinical Documentation Query ---
JERRY Mccullough : CLINICAL DOCUMENTATION QUERY Patient is a 76 year old male admitted secondary to "acute on chronic renal failure". Estimated GFR range from 11/20/15 to present of 27-49 ml's/min. Please specify the appropriate stage of "chronic renal failure" in your patient. Thank you. In your clinical opinion is this patient being managed for: ( ) Chronic kidney disease, stage 3-4 ( ) Other explanation of clinical findings (Please Explain) ( ) Unable to determine (Please Define) ( ) Need to Discuss ( ) Not Agree The medical record reflects the following clinical findings, treatment, and risk factors. Clinical Indicators: As above Treatment: IVF, serial chemistries, avoidance of nephrotoxins. Risk Factors: Age, medications, metastatic prostate cancer, poor oral intake Please clarify and document your clinical opinion in the progress notes and discharge summary. Terms such as "probable", "suspected", "likely", "questionable", "possible", or "still to be ruled out" are acceptable. IF IN AGREEMENT, YOU MUST DOCUMENT ABOVE DIAGNOSTIC STATEMENT IN DAILY PROGRESS NOTES AND DISCHARGE SUMMARY. This document is not part of the patient's record. Thank You, Emerson Gunn, RN [phone]
[2016-11-26] MEDS ORDERED: ENZALUTAMIDE 40 MG PO SCH (09:00)
[2016-11-26] MEDS ORDERED: VITAMIN B COMPLEX TAB PO SCH (09:00)
[2016-11-26] MEDS ORDERED: PSYLLIUM 58.6% PWD PACK S\\F PO SCH (09:00)
[2016-11-26] MEDS ORDERED: NICOTINE 7 MG/24 HR TDSY TD SCH (09:00)
[2016-11-26] MEDS ORDERED: MULTIVITAMIN TAB PO SCH (09:00)
--- NOTE | 2016-11-26 10:26 | Progress Note ---
Subjective Date of Service: Nov 26, 2016. Subjective Pt evaluation today including: conversation w/ patient, physical exam, chart review, lab review Subjectively feeling ok - no major flank pain - no SOB/CP - no bladder pain He has now completed chemotherapy for metastatic prostate ca - he has an indwelling right ureteral stent (previously a perc (Adriana) - subsequent internalization) - he had a CT last night that reveals b/l hydro and a Cr of 6 11/25/16 17:10 Red Blood Count 3.18, Mean Corpuscular Volume 88.7, Mean Corpuscular Hemoglobin 29.2, Mean Corpuscular Hemoglobin Concent 33.0, Mean Platelet Volume 9.8, Neutrophils (%) (Auto) 55.0, Lymphocytes (%) (Auto) 28.0, Monocytes (%) (Auto) 9.7, Eosinophils (%) (Auto) 6.7, Basophils (%) (Auto) 0.4, Neutrophils # (Auto) 2.71, Lymphocytes # (Auto) 1.38, Monocytes # (Auto) 0.48, Eosinophils # (Auto) 0.33, Basophils # (Auto) 0.02 Test 11/25/16 17:10 11/25/16 21:35 11/26/16 10:03 White Blood Count 4.93 K/uL (4.8-10.8) Red Blood Count 3.18 M/uL (4.7-6.1) Hemoglobin 9.3 g/dL (14.0-18.0) Hematocrit 28.2 % (42-52) Mean Corpuscular Volume 88.7 fL (80-100) Mean Corpuscular Hemoglobin 29.2 pg (25-34) Mean Corpuscular Hemoglobin Concent 33.0 g/dl (32-36) Platelet Count 253 K/uL (130-400) Mean Platelet Volume 9.8 fL (7.4-10.4) Neutrophils (%) (Auto) 55.0 % Lymphocytes (%) (Auto) 28.0 % Monocytes (%) (Auto) 9.7 % Eosinophils (%) (Auto) 6.7 % Basophils (%) (Auto) 0.4 % Neutrophils # (Auto) 2.71 K/uL (1.4-6.5) Lymphocytes # (Auto) 1.38 K/uL (1.2-3.4) Monocytes # (Auto) 0.48 K/uL (0.11-0.59) Eosinophils # (Auto) 0.33 K/uL (0-0.5) Basophils # (Auto) 0.02 K/uL (0-0.2) RDW Standard Deviation 51.8 fL (36.4-46.3) RDW Coefficient of Variation 15.8 % (11.5-14.5) Immature Granulocyte % (Auto) 0.2 % Immature Granulocyte # (Auto) 0.01 K/uL (0.00-0.02) Urine Color YELLOW Urine Appearance CLEAR (CLEAR) Urine pH 5.5 (4.5-7.5) Urine Specific [place] 1.014 (1.000-1.030) Urine Protein TRACE (NEG) Urine Glucose (UA) NEG (NEG) Urine Ketones NEG (NEG) Urine Occult Blood 2+ (NEG) Urine Nitrite NEG (NEG) Urine Bilirubin NEG (NEG) Urine Urobilinogen NEG (NEG) Urine Leukocyte Esterase LARGE (NEG) Urine WBC (Auto) >30 /hpf (0-5) Urine RBC (Auto) 10-30 /hpf (0-4) Urine Hyaline Casts (Auto) 1-5 /lpf (0-5) Urine Epithelial Cells (Auto) >30 /lpf (0-5) Urine Bacteria (Auto) NEG (NEG) Urine Renal Epithelial Cells /lpf (0-5) Phosphorus Level 5.0 mg/dl (2.5-4.9) Magnesium Level 2.8 mg/dl (1.8-2.4) Total Bilirubin 0.2 mg/dl (0.2-1) Direct Bilirubin < 0.1 mg/dl (0-0.2) Aspartate Amino Transf (AST/SGOT) 34 U/L (15-37) Alanine Aminotransferase (ALT/SGPT) 31 U/L (12-78) Alkaline Phosphatase 92 U/L (45-117) Total Protein 6.4 gm/dl (6.4-8.2) Albumin 3.1 gm/dl (3.4-5.0) Est Creatinine Clear Calc Drug Dose 8.2 ml/min Iron Level 28 mcg/dl (35-175) Total Iron Binding Capacity 228 mcg/dl (250-450) Ferritin 308.3 ng/ml (8.0-388.0) Vitamin B12 Level 818 pg/mL (211-911) Folate > 24.00 ng/mL (>5.38) Review of Systems Constitutional: No chills, No fatigue, No fever, No problem reported, No see HPI, No sweats, No weakness, No weight loss Eyes: No diplopia, No discharge, No eye pain, No problem reported, No redness, No see HPI, No worsening of vision ENT: No dental problems, No hearing loss, No nasal symptoms, No problem reported, No see HPI, No sore throat, No tinnitus, No trouble swallowing, No unusual epistaxis Respiratory: No cough, No dyspnea at rest, No dyspnea on exertion, No hemoptysis, No problem reported, No see HPI, No shortness of breath, No sputum, No wheezing Cardiac: No PND, No chest pain, No claudication, No edema, No orthopnea, No palpitations, No problem reported, No see HPI Breast: No breast lump, No breast pain, No change in shape, No nipple discharge , No problem reported, No see HPI Abdomen: No GI bleeding, No constipation, No diarrhea, No nausea, No pain, No problem reported, No see HPI, No vomiting Musculoskeletal: + swelling, No calf pain, No joint pain, No muscle pain, No problem reported, No see HPI Male : + problem reported Neurologic: No balance problems, No memory loss, No numbness/tingling, No paralysis, No problem reported, No see HPI, No vertigo, No weakness Psychiatric: No anhedonism, No anxiety, No depression symptoms, No insomnia, No problem reported, No see HPI, No substance abuse Heme: No abnormal bleeding/bruising, No clotting problems, No night sweats, No problem reported, No see HPI, No swollen lymph nodes Endo: No excessive thirst, No excessive urination, No fatigue, No problem reported, No see HPI Skin: No bleeding, No color change, No itch, No new/changing skin lesions, No problem reported, No rash, No see HPI All Other Systems: Reviewed and Negative Objective Vital Signs Date Time Temp Pulse Resp B/P Pulse Ox O2 Delivery O2 Flow Rate FiO2 11/26/16 07:46 36.8 70 20 158/72 94 Room Air 11/26/16 04:05 36.6 76 18 155/63 93 Room Air 11/26/16 04:00 Room Air 11/25/16 23:59 Room Air 11/25/16 21:50 36.7 72 18 156/83 95 Room Air 11/25/16 21:40 36.5 77 18 180/90 94 11/25/16 21:28 77 18 180/90 94 Room Air 11/25/16 20:51 79 18 184/93 95 Room Air 11/25/16 19:52 76 18 189/102 95 Room Air 11/25/16 18:50 73 22 185/93 97 Room Air 11/25/16 17:39 68 22 177/92 98 Room Air 11/25/16 16:02 36.5 74 22 173/87 96 Room Air Physical Exam General Appearance: no apparent distress Eyes: normal inspection ENT: hearing grossly normal, TMs normal Neck: no adenopathy Respiratory/Chest: no respiratory distress, no accessory muscle use Cardiovascular: regular rate, rhythm Abdomen: non tender, soft Neurologic/Psychiatric: alert, normal mood/affect, oriented x 3 Skin: warm/dry Lymphatic: no adenopathy Laboratory Results Last 24 Hours Test 11/25/16 17:10 11/25/16 21:35 11/26/16 10:03 White Blood Count 4.93 K/uL Red Blood Count 3.18 M/uL Hemoglobin 9.3 g/dL Hematocrit 28.2 % Mean Corpuscular Volume 88.7 fL Mean Corpuscular Hemoglobin 29.2 pg Mean Corpuscular Hemoglobin Concent 33.0 g/dl Platelet Count 253 K/uL Mean Platelet Volume 9.8 fL Neutrophils (%) (Auto) 55.0 % Lymphocytes (%) (Auto) 28.0 % Monocytes (%) (Auto) 9.7 % Eosinophils (%) (Auto) 6.7 % Basophils (%) (Auto) 0.4 % Neutrophils # (Auto) 2.71 K/uL Lymphocytes # (Auto) 1.38 K/uL Monocytes # (Auto) 0.48 K/uL Eosinophils # (Auto) 0.33 K/uL Basophils # (Auto) 0.02 K/uL RDW Standard Deviation 51.8 fL RDW Coefficient of Variation 15.8 % Immature Granulocyte % (Auto) 0.2 % Immature Granulocyte # (Auto) 0.01 K/uL Urine Color YELLOW Urine Appearance CLEAR Urine pH 5.5 Urine Specific [place] 1.014 Urine Protein TRACE Urine Glucose (UA) NEG Urine Ketones NEG Urine Occult Blood 2+ Urine Nitrite NEG Urine Bilirubin NEG Urine Urobilinogen NEG Urine Leukocyte Esterase LARGE Urine WBC (Auto) >30 /hpf Urine RBC (Auto) 10-30 /hpf Urine Hyaline Casts (Auto) 1-5 /lpf Urine Epithelial Cells (Auto) >30 /lpf Urine Bacteria (Auto) NEG Urine Renal Epithelial Cells /lpf Sodium Level 142 mmol/L 144 mmol/L Potassium Level 6.0 mmol/L 5.6 mmol/L Chloride Level 110 mmol/L 112 mmol/L Carbon Dioxide Level 23 mmol/L 21 mmol/L Anion Gap 9.0 mmol/L 11.0 mmol/L Blood Urea Nitrogen 56 mg/dl 55 mg/dl Creatinine 6.30 mg/dl 6.40 mg/dl Est Creatinine Clear Calc Drug Dose 8.4 ml/min 8.2 ml/min Estimated GFR () 9.1 8.9 Estimated GFR (Non- 7.9 7.7 BUN/Creatinine Ratio 8.9 8.6 Random Glucose 83 mg/dl 107 mg/dl Calcium Level 10.6 mg/dl 10.2 mg/dl Phosphorus Level 5.0 mg/dl Magnesium Level 2.8 mg/dl Total Bilirubin 0.2 mg/dl Direct Bilirubin < 0.1 mg/dl Aspartate Amino Transf (AST/SGOT) 34 U/L Alanine Aminotransferase (ALT/SGPT) 31 U/L Alkaline Phosphatase 92 U/L Total Protein 6.4 gm/dl Albumin 3.1 gm/dl Iron Level 28 mcg/dl Total Iron Binding Capacity 228 mcg/dl Ferritin 308.3 ng/ml Vitamin B12 Level 818 pg/mL Folate > 24.00 ng/mL Assessment and Plan Metastatic prostate ca s/p recent chemo; b/l hydro with renal failure despite ureteral stent (placed Sep 12) - discussed options with the patient, while there is a chance he would gain some benefit from a R ureteral stent exchange, my suspicion is that this benefit will be limited - further, based on his prior stent change, I suspect it will challenging to impossible to place a retrograde left stent secondary to direct bladder invasion from his prostate cancer - given his renal failure and hyperkalemia, I have recommended transfer for b/l perc nephrostomy placement - I have discussed this recommendation with the patient who is very understanding and in agreement with the plan
[2016-11-26 10:56] LABS: BUN/CREATININE RATIO 8.3 (10-20); CALCIUM 9.6 mg/dl (8.5-10.1); POTASSIUM 5.6 mmol/L (3.5-5.1)
[2016-11-26 12:03] VITALS: BP 191/83; PULSE 74; TEMP 36.6; O2SAT 92
[2016-11-26] MEDS: SODIUM CHLORIDE 0.9% 1000ML 1,000 ML IV SCH (12:51)
--- NOTE | 2016-11-26 13:12 | Discharge Instructions ---
Discharge Instructions Admission Reason for Admission: Acute Renal Failure,Hyperkalemia Discharge Discharge Diagnosis / Problem: acute renal failure, hyperkalemia, b/l hydronephrosis from tumor Discharge Goals Goal(s): Diagnostic testing Activity Recommendations Activity Limitations: as noted below Lifting Limitations: until after follow-up appointment . Current Hospital Diet Patient's current hospital diet: Renal Diet Discharge Diet Recommended Diet: Regular Diet (npo at transfer for possible procedure, except medicaiton) Pending Studies Studies pending at discharge: no Medical Emergencies . Who to Call and When: Medical Emergencies: If at any time you feel your situation is an emergency, please call 911 immediately. . Non-Emergent Contact Non-Emergency issues call your: Primary Care Provider, Oncologist Call Non-Emergent contact if: you have a fever, your pain is not controlled . . "Provider Documentation" section prepared by Marco Mahajan. VTE Core Measure Inpt VTE Proph given/why not?: Unfractionated heparin SQ, SCD's
[2016-11-26 15:08] VITALS: BP 183/74; PULSE 72; TEMP 37.2; O2SAT 95
[2016-11-26] MEDS ORDERED: SODIUM POLYST. SULF SUSP 15G/60ML PO STA (15:34)
--- NOTE | 2016-11-26 15:34 | Discharge Summary ---
Discharge Summary Admission Date: Nov 25, 2016 at 20:52 Discharge Date: Nov 26, 2016 Discharge Disposition: Acute care facility Principal Diagnosis: bilateral ureteral obstruction, acute renal failure, hyperkalemia Medication Reconciliation Continued Medications: Albuterol Inhaler (Ventolin Inhaler) Aers 2 PUFFS INH Q4H, #5 INHALER Alendronate Sodium (Fosamax) 70 Mg Tab 70 MG PO WK, TAB WEDNESDAYS Biotin (Biotin 5000) 5 Mg Cap 1 CAP PO DAILY Calcium Carbonate-Vitamin D (Calcium + D) 1 Tab Tab 1 TAB PO NOON/HS Citalopram Hydrobromide (Celexa) 10 Mg Tab 10 MG PO QPM, TAB Coenzyme Q10 (Ubidecarenone) (Co Q-10) 100 Mg Cap 100 MG PO QPM Dutasteride (Dutasteride) 0.5 Mg Cap 0.5 MG PO QAM Enzalutamide (Xtandi) 40 Mg Cap 4 TABS PO DAILY Fish Oil ([place]-3) 1 Ea Cap 1 CAP PO DAILY, CAP Gabapentin (Neurontin) 100 Mg Cap 100 MG PO BID, CAP Hfbagvtitai-Wymdwmocfgb-Vhf C- (Glucosamine Chondroitin) 1 Tab Tab 1 TAB PO NOON Hydrocortisone 2.5% (Rectal) (Anusol-Hc 2.5%) 2.5 % Cre 1 APPLN TOP PRN for 7 Days, #30 GM Leuprolide Acetate (Lupron [place]) 30 Mg Kit 1 DOSE INJ [id number] LAST DOSE 1 MONTH AGO Multiple Vitamins W/ Minerals (Ocuvite Lutein) 1 Cap Cap 1 CAP PO NOON Multivitamin (Multivitamin) Tab 1 TAB PO NOON, TAB Psyllium (Metamucil Powder) Powd 1 PACK PO DAILY, PACK Simvastatin (Simvastatin) 40 Mg Tab 40 MG PO QPM Tramadol (Ultram) 50 Mg Tab 50-100 MG PO QID PRN for Pain, TAB Umeclidinium-Vilanterol (Anoro Ellipta 62.5-25 Mcg/INH) 1 Aer Aer 1 PUFF INH DAILY Vitamin B Complex (Vitamin B Complex) 1 Tab Tab 1 TAB PO NOON Discontinued Medications: Dipyridamole/Aspirin (Aggrenox 25-200 mg) 1 Cap Cap 1 CAP PO BID, CAP Discharge Exam Review of Systems: Constitutional: No chills, No fever, No sweats Respiratory: No cough, No sputum Cardiovascular: No chest pain, No orthopnea Abdomen: + nausea, No constipation, No diarrhea, No pain, No vomiting Neurologic: No memory loss, No paralysis Physical Exam: General Appearance: WD/WN, + mild distress Neck: supple, no JVD Respiratory/Chest: chest non-tender, + decreased breath sounds Cardiovascular: regular rate, rhythm, + systolic murmur Abdomen / GI: soft, + tenderness, + distended Neurologic/Psychiatric: alert, oriented x 3 Skin: normal color, warm/dry Hospital Course 76 M with 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 Acute on chronic renal failure-Pt improved with hydration in the ER, following hyperkalemia, Hold nephrotoxins, urinary outlet obstuction, dutasteride 0.5 mg by mouth every morning. Will increase prednisone from 2.5-5 mg by mouth daily for stress dose. Right ureteral stent- is in good placement-as noted by Dr. Enrique, from urology, consideration of transfer to [facility] for percutaneous left nephrostomy tube Anemia of chronic disease --hemoglobin of 9.1 upon admission Vascular disease--continue Aggrenox 1 capsule by mouth twice a day, will hold if procedure is imminent. Hypercholesterolemia--continue simvastatin 40 mg by mouth every afternoon. Peripheral neuropathy-- gabapentin 100 mg by mouth twice a day. Depression-- citalopram 10 mg by mouth every afternoon. Hemorrhoids--continue Anusol HC-2.5% cream applied topically daily when necessary. Nutraceuticals--continue vitamin B complex, multivitamin and glucosamine chondroitin sulfate. Total Time Spent: Greater than 30 minutes This includes examination of the patient, discharge planning, medication reconciliation, and communication with other providers. Discharge Instructions Please refer to the electronic Patient Visit Report (Discharge Instructions) for additional information.
[2016-11-26 16:00] VITALS: O2SAT 95
[2016-11-26 19:20] VITALS: BP 211/91; PULSE 75; TEMP 36.8; O2SAT 93
== END 2016-11-26 20:30 | disposition short-term general hospital (02) | DRG 683 ==
LOC: ENRESERVDT → ENRESERVTM → C.EDB 16:01 → C.2T 20:52
PROVIDERS: ADMIT Hospitalist; ATTEND Hospitalist
DX: N17.9 Acute kidney failure, unspecified (principal); N39.0 Urinary tract infection, site not specified; E86.0 Dehydration; N13.1 Hydronephrosis with ureteral stricture, not elsewhere classified; N18.9 Chronic kidney disease, unspecified; E87.5 Hyperkalemia; F17.210 Nicotine dependence, cigarettes, uncomplicated; C61 Malignant neoplasm of prostate; D63.8 Anemia in other chronic diseases classified elsewhere; E78.00 Pure hypercholesterolemia, unspecified; F32.9 Major depressive disorder, single episode, unspecified; N42.89 Other specified disorders of prostate; I12.9 Hypertensive chronic kidney disease with stage 1 through stage 4 chronic kidney disease, or unspecified chronic kidney disease; G62.9 Polyneuropathy, unspecified; I99.9 Unspecified disorder of circulatory system; M54.9 Dorsalgia, unspecified; G89.29 Other chronic pain; T39.395A Adverse effect of other nonsteroidal anti-inflammatory drugs [NSAID], initial encounter; X58.XXXA Exposure to other specified factors, initial encounter; R53.1 Weakness; R11.0 Nausea; R42 Dizziness and giddiness; K64.9 Unspecified hemorrhoids; Z96.0 Presence of urogenital implants; Z86.73 Personal history of transient ischemic attack (TIA), and cerebral infarction without residual deficits; Z92.21 Personal history of antineoplastic chemotherapy; Z79.83 Long term (current) use of bisphosphonates; Z79.1 Long term (current) use of non-steroidal anti-inflammatories (NSAID); Z79.891 Long term (current) use of opiate analgesic; Z79.899 Other long term (current) drug therapy; Z79.01 Long term (current) use of anticoagulants

== ENCOUNTER → 2016-11-25 | Outpatient (CLI) | payer OTHER ==
[2016-11-25 13:22] LABS: BASO % 0.9 %; BASO ABS # 0.04 K/uL (0-0.2); COMPLETE YES; EOS % 7.8 %; HEMATOCRIT 29.6 % (42-52); IG% 0.2 %; LYMPH % 21.2 %; LYMPH ABS # 0.98 K/uL (1.2-3.4); MEAN CELL VOLUME 89.2 fL (80-100); MEAN CORPUSCULAR HEMOGLOBIN 29.5 pg (25-34); MEAN CORPUSCULAR HGB CONC 33.1 g/dl (32-36); MEAN PLATELET VOLUME 9.6 fL (7.4-10.4); MONO % 11.3 %; NEUT % 58.6 %; PLATELET COUNT 269 K/uL (130-400); RED BLOOD COUNT 3.32 M/uL (4.7-6.1); WHITE BLOOD COUNT 4.62 K/uL (4.8-10.8)
[2016-11-25 14:01] LABS: ALB/GLOB RATIO 0.8 (0.9-2); ALKALINE PHOSPHATASE 86 U/L (45-117); ALT/SGPT 28 U/L (12-78); AST/SGOT 31 U/L (15-37); BLOOD UREA NITROGEN 53 mg/dl (7-18); BUN/CREATININE RATIO 8.3 (10-20); CALCIUM 10.5 mg/dl (8.5-10.1); CARBON DIOXIDE 21 mmol/L (21-32); CHLORIDE 110 mmol/L (98-107); GLUCOSE 123 mg/dl (70-99); POTASSIUM 5.2 mmol/L (3.5-5.1); SODIUM 144 mmol/L (136-145)
== END | disposition home or self-care (01) ==
LOC: C.LABMFLN 11:39
PROVIDERS: ATTEND Family Medicine
DX: C61 Malignant neoplasm of prostate (principal); N13.30 Unspecified hydronephrosis; N28.9 Disorder of kidney and ureter, unspecified; N39.0 Urinary tract infection, site not specified; R53.83 Other fatigue; R42 Dizziness and giddiness

== ENCOUNTER → 2016-12-02 | Outpatient (CLI) | payer OTHER ==
[~2016-12-02] MED LIST changes: +ATV5 PO; +BIOT1TAB2 PO; +BIOTCAP2 PO; +CALCTAB65 PO; -CIPR-255 PO; +DAPT500I IV; +ENZA1CAP PO; +FSM70 PO; +OMEG10007 PO; -PRD/25 PO; -PROCHLORPERAZINE PO; +TRAM-10 PO; -TYL325X PO; +VNTHFA/IN INH
[2016-12-02 18:00] LABS: BLOOD UREA NITROGEN 24 mg/dl (7-18); BUN/CREATININE RATIO 14.3 (10-20); CALCIUM 8.7 mg/dl (8.5-10.1); CARBON DIOXIDE 25 mmol/L (21-32); CHLORIDE 108 mmol/L (98-107); GLUCOSE 119 mg/dl (70-99); POTASSIUM 3.4 mmol/L (3.5-5.1); SODIUM 144 mmol/L (136-145)
--- NOTE | 2016-12-06 09:39 | CODING QUERY NO DIAGNOSIS ---
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 Please assist us with providing a diagnosis/symptom for the test(s) below: A diagnosis/symptom was not documented on your Order. A valid diagnosis/symptom is required to bill all insurances. Please remember that we are unable to code a diagnosis of rule out, probable, possible, questionable, or suspected. Tests that require a diagnosis: DOS 12/02/16 * PRP DIAGNOSIS: Provider Signature: Date: Thank you Jessa Marie Health Information Management Once completed, please kindly fax back to [phone] For questions please call [phone]
== END | disposition home or self-care (01) ==
LOC: C.LABMFLN 15:20
PROVIDERS: ATTEND Urology
DX: C61 Malignant neoplasm of prostate (principal); N13.30 Unspecified hydronephrosis; N17.9 Acute kidney failure, unspecified

== ENCOUNTER 2016-12-25 11:28 | Inpatient (IN) | payer OTHER ==
[~2016-12-25] VITALS: Ht 162.6 cm; Wt 65.3 kg
[~2016-12-25 11:28] MED LIST changes: -ATV5 PO; -BIOT1TAB2 PO; -CALCTAB65 PO; -DAPT500I IV; -FSM70 PO; -VNTHFA/IN INH
[2016-12-25] MEDS ORDERED: VNTHFA/IN INH (12:40)
[2016-12-25] MEDS ORDERED: FSM70 PO (12:41)
[2016-12-25] MEDS ORDERED: BIOT1TAB2 PO (12:43)
[2016-12-25] MEDS ORDERED: CALCTAB65 PO (12:44)
[2016-12-25 13:05] LABS: BASO % 0.1 %; BASO ABS # 0.01 K/uL (0-0.2); HEMATOCRIT 24.5 % (42-52); IG% 0.1 %; LYMPH % 8.7 %; LYMPH ABS # 0.72 K/uL (1.2-3.4); MEAN CELL VOLUME 87.8 fL (80-100); MEAN CORPUSCULAR HEMOGLOBIN 29.7 pg (25-34); MEAN CORPUSCULAR HGB CONC 33.9 g/dl (32-36); MEAN PLATELET VOLUME 10.5 fL (7.4-10.4); MONO % 16.3 %; NEUT % 73.8 %; PLATELET COUNT 218 K/uL (130-400); RED BLOOD COUNT 2.79 M/uL (4.7-6.1); WHITE BLOOD COUNT 8.28 K/uL (4.8-10.8)
[2016-12-25 13:14] LABS: ALT/SGPT 12 U/L (12-78); AST/SGOT 45 U/L (15-37); BLOOD UREA NITROGEN 37 mg/dl (7-18); CALCIUM 9.3 mg/dl (8.5-10.1); CARBON DIOXIDE 23 mmol/L (21-32); CHLORIDE 99 mmol/L (98-107); GLUCOSE 87 mg/dl (70-99); POTASSIUM 4.1 mmol/L (3.5-5.1); SODIUM 134 mmol/L (136-145)
--- NOTE | 2016-12-25 13:17 | DIAGNOSTIC IMAGING REPORT ---
CHEST ONE VIEW PORTABLE CLINICAL HISTORY: WEAKNESS dyspnea COMPARISON STUDY: 01/10/2016 FINDINGS: Central catheter in superior vena cava. Lungs are clear. Diaphragms are smooth. IMPRESSION: No acute process. Electronically signed by: Perry Mccabe M.D. 12/25/2016 1:15 PM Dictated Date/Time: 12/25/2016 1:15 PM
[2016-12-25] MEDS ORDERED: SODIUM CHLORIDE 0.9% 1000ML 1,000 ML IV STA (13:18)
[2016-12-25] MEDS ORDERED: SODIUM CHLORIDE 0.9% 500ML 500 ML IV STA (13:18)
[2016-12-25 13:24] LABS: ALB/GLOB RATIO 0.7 (0.9-2); ALKALINE PHOSPHATASE 79 U/L (45-117); CKMB/CK RATIO 0.4 (0-3.0)
[2016-12-25 13:31] LABS: COMPLETE YES
--- NOTE | 2016-12-25 13:48 | DIAGNOSTIC IMAGING REPORT ---
HEAD CT NONCONTRAST CT DOSE: 537.48 mGy.cm HISTORY: Mental status change weakness TECHNIQUE: Multiaxial CT images of the head were performed without the use of intravenous contrast. Comparison: None. Findings: The paranasal sinuses and mastoid air cells are clear. 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 Moderate cerebellar atrophy. No evidence for acute intracranial hemorrhage. Mild compensatory dilatation of the left lateral ventricle. Mild chronic small vessel change of aging. Impression: Chronic and small vessel change. No acute intracranial abnormality. Electronically signed by: Perry Mccabe M.D. 12/25/2016 1:46 PM Dictated Date/Time: 12/25/2016 1:45 PM
[2016-12-25 14:45] LABS: MANUAL MICROSCOPIC REQUIRED? YES; URINE APPEARANCE CLOUDY (CLEAR); URINE BILIRUBIN NEG (NEG); URINE COLOR YELLOW; URINE NITRITE NEG (NEG); URINE SPECIFIC GRAVITY 1.015 (1.000-1.030); UROBILINOGEN NEG (NEG)
[2016-12-25 14:46] LABS: MANUAL MICROSCOPIC REQUIRED? YES; URINE APPEARANCE CLOUDY (CLEAR); URINE BILIRUBIN NEG (NEG); URINE COLOR YELLOW; URINE NITRITE NEG (NEG); URINE SPECIFIC GRAVITY 1.025 (1.000-1.030); UROBILINOGEN NEG (NEG)
[2016-12-25 14:50] LABS: REVIEW REQ? NO
[2016-12-25 15:03] LABS: URINE RBC >30 /hpf (0-4)
[2016-12-25 15:04] LABS: URINE BACTERIA 3+ (NEG); URINE WBC >30 /hpf (0-5)
[2016-12-25 15:09] LABS: URINE RBC >30 /hpf (0-4)
[2016-12-25 15:10] LABS: URINE BACTERIA 3+ (NEG); URINE WBC >30 /hpf (0-5)
[2016-12-25] MEDS ORDERED: CEFTRIAXONE SOD INJ 1 GM ADDVIAL IV STA (16:02)
[2016-12-25] MEDS ORDERED: TRAMADOL HCL 50 MG TAB PO PRN (16:15)
[2016-12-25] MEDS ORDERED: HEPARIN SOD 5000 UNIT/0.5 ML CARP SQ SCH (16:30)
[2016-12-25] MEDS ORDERED: ACETAMINOPHEN 325 MG TAB PO PRN (16:30)
[2016-12-25] MEDS ORDERED: ALUMINUM/MAGNESIUM/SIMETH (MAALOX MAX) 30 ML UDC PO PRN (16:30)
[2016-12-25] MEDS ORDERED: MAGNESIUM HYDROXIDE SUSP 30 ML UDC PO PRN (16:30)
[2016-12-25] MEDS ORDERED: ONDANSETRON INJ 2 MG/ML 2 ML VIAL IV PRN (16:30)
[2016-12-25] MEDS ORDERED: SODIUM CHLORIDE 0.9% 1000ML 1,000 ML IV SCH (16:30)
[2016-12-25] MEDS ORDERED: POLYETHYLENE (MIRALAX) 17 GM PACK PO PRN (16:30)
[2016-12-25] MEDS ORDERED: ALBUT/IPRATROP 3MG/0.5MG NEB 3 ML VIAL INH PRN (16:30)
[2016-12-25] MEDS ORDERED: HEPARIN SOD (PORCINE) 1000 UNIT/ML 10 ML VIAL ONE (16:57)
[2016-12-25] MEDS ORDERED: FENTANYL CITRATE INJ 50 MCG/1 ML 2 ML VIAL ONE (16:57)
[2016-12-25] MEDS ORDERED: NiCARDipine HCL INJ 2.5 MG/ML 10 ML AMP ONE (16:57)
[2016-12-25] MEDS ORDERED: MIDAZOLAM HCL 1 MG/ML 2ML VIAL ONE (16:58)
[2016-12-25 17:04] LABS: PARTIAL THROMBOPLASTIN RATIO 1.4; PROTHROMBIN TIME (PATIENT) 11.1 SECONDS (9.0-12.0)
[2016-12-25 17:11] LABS: ISTAT HEMOGLOBIN 9.5 g/dl (14.0-18.0); ISTAT IONIZED CALCIUM 1.27 mmol/l (1.12-1.32)
--- NOTE | 2016-12-25 17:13 | EMERGENCY ROOM VISIT NOTE ---
ED Visit Note First contact with patient: 17:10 I was called to evaluate this patient by the nursing staff. The patient was having tremors. He was very diaphoretic and pale. The patient would not respond to verbal commands. He was shaking all over. 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 Initially he was in second degree type II heart block and then went into complete heart block. He became more bradycardic and started having ST segment elevation in a pattern which was consistent with an acute inferior ST segment elevation NM with reciprocal changes consistent with posterior wall involvement. Heart alert was called at that time. The patient was already being admitted by the [facility]. They were also called to the bedside. I placed an 18-gauge IV in the patient's left antecubital. The patient was maneuvered into a seated position. He was hypotensive. A chest x-ray was repeated as well as an i-STAT and a repeat troponin. The patient started to respond and went into a normal sinus rhythm at 89 beats per minute. His blood pressure improved. He was awake and alert and at that time his daughter who is a nurse told me that he had a similar episode in the past but they thought was possibly vagal. The patient's condition is very poor he has widely metastatic cancer. He does not wish to be on dialysis. When this was explained to him that he may need to go to the cardiac catheterization lab and may require IV dye he did not wish to go to the [employer] Techn[employer] In[employer] and instead is opting for medical management. On repeat examination the patient is not having any pain. He is no longer diaphoretic. I would wonder if the patient has these episodes of increased vagal tone goes no heart block and then has low blood flow ischemia. Given this, I'm unsure if the cardiac catheterization is appropriate in this gentleman. A definite cardiac lesion may not be identified and he would still be exposed to a large amount of intravenous dye. The patient was evaluated by the cardiac proc tech. At this time the patient still does not wish to be taken to the cardiac Machine Tool Technician Instructor. He wishes to be made comfortable at this time. The [facility] will discuss his case with hospice. The patient was reevaluated and on subsequent reevaluation was feeling much better.
--- NOTE | 2016-12-25 17:18 | Progress Note ---
Progress Note Mr Ryan had an episode of sweating and confusion, ST elevation on monitor, heart alert is called. EKG with ST elevation on inferior leads. bradycardia, Dr Lemus evaluated the patient, patient mental status improved, EKG improved on repeat. likely vasovagal episode, talked to family, they want no acute interventions, continue medical management for now, family wants to talk to palliative care to establish goals of care, possible hospice is required. DNR
--- NOTE | 2016-12-25 17:19 | DIAGNOSTIC IMAGING REPORT ---
CHEST ONE VIEW PORTABLE CLINICAL HISTORY: Congestive failure COMPARISON STUDY: Earlier in the day FINDINGS: A left subclavian A-Port catheter is again visualized. The heart is at the upper limits of normal in size. There is subtle interstitial thickening/edema. There is no focal pulmonary consolidation. There are no pleural effusions.[ IMPRESSION: Subtle interstitial thickening/edema. No evidence of focal pulmonary consolidation. Electronically signed by: Bassem Blevins M.D. 12/25/2016 5:18 PM Dictated Date/Time: 12/25/2016 5:16 PM
--- NOTE | 2016-12-25 17:20 | HISTORY & PHYSICAL EXAMINATION ---
DATE OF ADMISSION: 12/25/2016 CHIEF COMPLAINT: Weakness. HISTORY OF PRESENT ILLNESS: This is a 76-year-old male with history of prostate cancer, presents to Emergency Room complaining of worsening generalized weakness in the past several weeks. He is accompanied by the patient's daughter who mentioned that the patient has increasing generalized weakness to the point he had trouble standing on his chair last night. The patient also had worsening balance and poor appetite. His daughter believes that he appears dehydrated and also that he has been hypotensive. The patient stated that he is feeling pretty good. The patient was admitted to the hospital on November 25 for bilateral renal failure and had bilateral nephrostomies placed. The patient's nephrostomy tubes were draining well. On December 10 his right stent was removed by Dr. Martin Holden. The patient had 12 rounds of chemotherapy for his prostate cancer since 2014. He was discharged on December 01 and had worsening symptoms since then. He was taking tramadol 3 per day for pain. The patient and his daughter at bedside denies any headache, fever, source of consciousness, visual changes, breathing difficulties, nausea, vomiting, diarrhea. REVIEW OF SYSTEMS: Negative except as above. Ten out of 14 systems were reviewed. PAST MEDICAL HISTORY: Acute renal failure, hyperkalemia, prostate cancer, TIA. FAMILY HISTORY: Cancer, heart disease, hypertension and no diabetes. SOCIAL HISTORY: Smokes 6 cigarettes a day. No alcohol. . Lives with family. Retired. CURRENT MEDICATIONS: Albuterol HFA 2-4 puffs inhaled q. 6 hours, alendronate 70 mg p.o. weekly, biotin 1 capsule p.o. daily, calcium with vitamin D 1 tablet p.o. daily, escitalopram 10 mg p.o. daily, Coenzyme Q10 100 mg p.o. daily, Aggrenox 25/200 mg 1 capsule p.o. b.i.d.,0.5 mg p.o. daily, enzalutamide 4 tablets p.o. daily, fish oil 1 capsule p.o. daily, gabapentin 200 mg p.o. b.i.d., leuprolide 1 dose inhaled every 4 months, multivitamin 1 capsule p.o. at noon time, simvastatin 40 mg daily, Anoro Ellipta 62.5/25 mcg inhaled 1 puff inhaled daily, vitamin B complex 1 tablet p.o. at noon, tramadol 100 mg p.o. q.i.d. p.r.n. pain. ALLERGIES: AZITHROMYCIN, HORSE SERUM, TETANUS TOXOID. PHYSICAL EXAMINATION: VITAL SIGNS: Temperature 37.3, pulse 74, respirations 20, blood pressure 94/56, 95% on room air. GENERAL: Pale looking, tired appearing, not in distress. HEENT: Normocephalic, atraumatic. PERRLA, EOMI. Mouth moist, no lesions. NECK: No JVD. Trachea midline. Thyroid is not enlarged. LUNGS: Clear to auscultation except for some crackles at the right base. HEART: S1, S2, RRR. ABDOMEN: Soft, nontender, nondistended. Bowel sounds present bilateral. No organomegaly. GENITOURINARY: Bilateral nephrostomy tubes in place with slightly cloudy urine from the left. MUSCULOSKELETAL: Back is symmetrical. No CVA tenderness. EXTREMITIES: No clubbing, cyanosis, or edema. NEUROLOGICAL: Alert, oriented x3. Motor sensory normal. SKIN: No rash, no jaundice. DIAGNOSTIC INTERPRETATION: Chest x-ray, no acute process. Head CT - chronic small vessel change, no acute abnormality. LABORATORY DATA: White count 8.2, hemoglobin 8.3, platelets 218. Sodium 134, potassium 4.1, chloride 99, CO2 23, BUN of 37, creatinine of 2.2, glucose of 87. Urinalysis - large leukocyte esterases, more than 30 red blood cells, white blood cells present, calcium oxalate crystals, bacteria 3+ and epithelial casts. EK beats per minute, Q-waves inferior and no acute ST-wave changes. ASSESSMENT AND PLAN: A 76-year-old male comes to the hospital with weakness. 1. Increased generalized weakness and unsteady gait, likely related to a urinary infection in the setting of nephrostomy tubes. Start the patient on IV ceftriaxone, awaiting for urine culture results. 2. Acute on chronic renal failure with a baseline creatinine of 1.5-1.6, currently 2.2. patient received normal saline in ER, monitor creatinine level. 3. History of prostate cancer. Continue outpatient regimen in the form of Lupron, dutasteride and enzalutamide. 4. History of transient ischemic attack. Continue Aggrenox po BID. 5. Deep vein thrombosis and gastrointestinal prophylaxis. 6. The patient is a do not resuscitate. PT/OT eval, daughter requested placement to [facility] Time spent on doing this admission 50 minutes. CARISSA
[2016-12-25 17:24] VITALS: O2SAT 95; Ht 162.6 cm; Wt 65.3 kg
[2016-12-25 18:00] LABS: INR 1.1 (0.9-1.1); PARTIAL THROMBOPLASTIN RATIO 1.1; PROTHROMBIN TIME (PATIENT) 11.3 SECONDS (9.0-12.0)
--- NOTE | 2016-12-25 18:07 | EMERGENCY ROOM VISIT NOTE ---
History Report prepared by Michaelle: Pratik Nation Under the Supervision of: Dr. Chris Lin M.D. First contact with patient: 13:01 Chief Complaint: WEAKNESS Stated Complaint: WEAK Nursing Triage Summary: Pts daughter reports since admission at [facility] (DC on the of last month). Increased generalized weakness and unsteady gait, poor depth perception. Pt with hx of prostate CA and renal failure with nephrostomy placement. History of Present Illness The patient is a 76 year old male with a history of prostate cancer who presents to the Emergency Room with complaints of worsening generalized weakness for the past several weeks. The patient's daughter notes that he has had increased generalized weakness to the point that he had trouble standing up from a chair last night. The patient has also had worsening balance and poor depth perception. The patient's daughter also believes that he appears dehydrated, having poor appetite, and notes that he has been hypotensive. The patient states that he is feeling "pretty good." The patient was admitted to the hospital on November 25 for bilateral renal failure. He had bilateral nephrostomies placed. The patient's nephrostomy tubes are draining well. The patient has had 12 rounds of chemotherapy for his prostate cancer since 2014. He was discharged on December 01, and has had worsening symptoms since then. The patient takes Tramadol 3 times per day for pain. Patient and his daughter deny LOC, headache, fevers, chills, diaphoresis, visual changes, neck pain, chest pain, breathing difficulties, nausea, vomiting, abdominal pain, back pain , melena, hematochezia, urinary symptoms, numbness, lymphadenopathy, rash, or other complaints. Source of History: patient, family (daughter) Onset: several weeks Position: other (generalized) Quality: other (weakness) Timing: worsening Review of Systems See HPI for pertinent positives and negatives. A total of ten systems were reviewed and were otherwise negative. Past Medical & Surgical Medical Problems: (1) Acute renal failure (2) Hyperkalemia (3) Prostate cancer (4) TIA (transient ischemic attack) (5) Urinary catheter infection Family History Cancer Heart disease Hypertension Social History Smoking Status: Current Every Day Smoker Drug Use: none Marital Status: Housing Status: lives with family Occupation Status: retired Current/Historical Medications Scheduled Albuterol Hfa (Ventolin Hfa), 2-4 PUFFS INH Q6H Alendronate Sodium (Alendronate Sodium), 70 MG PO WK Biotin (Biotin), 1 CAP PO DAILY Calcium Carbonate-Vitamin D (Calcium 500 + D), 1 TAB PO QPM Citalopram Hydrobromide (Celexa), 10 MG PO QPM Coenzyme Q10 (Ubidecarenone) (Co Q-10), 100 MG PO QPM Dipyridamole/Aspirin (Aggrenox 25-200 mg), 1 CAP PO BID Dutasteride (Dutasteride), 0.5 MG PO QAM Enzalutamide (Xtandi), 4 TABS PO DAILY Fish Oil ([place]-3), 1 CAP PO DAILY Gabapentin (Neurontin), 200 MG PO BID Leuprolide Acetate (Lupron Depot), 1 DOSE INJ [id number] Multiple Vitamins W/ Minerals (Ocuvite Lutein), 1 CAP PO NOON Simvastatin (Simvastatin), 40 MG PO QPM Umeclidinium-Vilanterol (Anoro Ellipta 62.5-25 Mcg/INH), 1 PUFF INH DAILY Vitamin B Complex (Vitamin B Complex), 1 TAB PO NOON Scheduled PRN Tramadol (Ultram), 100 MG PO QID PRN for Pain Allergies Coded Allergies: Azithromycin (Verified Allergy, Unknown, HEART STOPPED, 12/25/16) Horse Serum Proteins (Verified Allergy, Unknown, RASH,JOINTS WERE AFFECTED , 12/25/16) Tetanus Toxoid (Verified Allergy, Unknown, UNKNOWN, 12/25/16) Physical Exam Vital Signs Date Time Temp Pulse Resp B/P Pulse Ox O2 Delivery O2 Flow Rate FiO2 12/25/16 17:51 97 12/25/16 17:37 101 22 132/77 95 Nasal Cannula 3.0 12/25/16 17:24 95 Nasal Cannula 3.0 12/25/16 16:34 37.7 72 21 116/59 95 Room Air 12/25/16 15:50 70 20 109/62 95 Room Air 12/25/16 13:51 67 12/25/16 13:50 67 19 105/58 95 Room Air 12/25/16 12:03 73 12/25/16 11:46 95 Room Air 12/25/16 11:30 37.3 74 20 94/56 95 Room Air Physical Exam GENERAL: Awake, alert, tired-appearing, in no distress HENT: Normocephalic, atraumatic. Oropharynx unremarkable. EYES: Normal conjunctiva. Sclera non-icteric. NECK: Supple. No nuchal rigidity. FROM. No JVD. RESPIRATORY: Clear to auscultation. CARDIAC: Regular rate, normal rhythm. Extremities warm and well perfused. Pulses equal. ABDOMEN: Soft, non-distended. No tenderness to palpation. No rebound or guarding. No masses. : Bilateral nephrostomy tubes in place with slightly cloudy urine. RECTAL: Deferred. MUSCULOSKELETAL: Chest examination reveals no tenderness. The back is symmetrical on inspection without obvious abnormality. There is no CVA tenderness to palpation. No joint edema. LOWER EXTREMITIES: Calves are equal size bilaterally and non-tender. No edema. No discoloration. NEURO: Normal sensorium. No sensory or motor deficits noted. SKIN: No rash or jaundice noted. Medical Decision & Procedures ER Provider Diagnostic Interpretation: X ray results as stated below per my interpretation and radiologist interpretation. Other radiology results as stated below per my review and radiologist interpretation CHEST ONE VIEW PORTABLE CLINICAL HISTORY: WEAKNESS dyspnea COMPARISON STUDY: 01/10/2016 FINDINGS: Central catheter in superior vena cava. Lungs are clear. Diaphragms are smooth. IMPRESSION: No acute process. Electronically signed by: Perry Mccabe M.D. 12/25/2016 1:15 PM Dictated Date/Time: 12/25/2016 1:[address] NON[address]AST CT DOSE: 537.48 mGy.cm HISTORY: Mental status change weakness TECHNIQUE: Multiaxial CT images of the head were performed without the use of intravenous contrast. Comparison: None. Findings: The paranasal sinuses and mastoid air cells are clear. 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 Moderate cerebellar atrophy. No evidence for acute intracranial hemorrhage. Mild compensatory dilatation of the left lateral ventricle. Mild chronic small vessel change of aging. Impression: Chronic and small vessel change. No acute intracranial abnormality. Electronically signed by: Perry Mccabe M.D. 12/25/2016 1:46 PM Dictated Date/Time: 12/25/2016 1:45 PM Laboratory Results 12/25/16 12:05 Red Blood Count 2.79, Mean Corpuscular Volume 87.8, Mean Corpuscular Hemoglobin 29.7, Mean Corpuscular Hemoglobin Concent 33.9, Mean Platelet Volume 10.5, Neutrophils (%) (Auto) 73.8, Lymphocytes (%) (Auto) 8.7, Monocytes (%) (Auto) 16.3, Eosinophils (%) (Auto) 1.0, Basophils (%) (Auto) 0.1, Neutrophils # (Auto ) 6.11, Lymphocytes # (Auto) 0.72, Monocytes # (Auto) 1.35, Eosinophils # (Auto ) 0.08, Basophils # (Auto) 0.01 12/25/16 12:05 Test 12/25/16 12:05 12/25/16 12:59 12/25/16 14:07 12/25/16 16:54 White Blood Count 8.28 K/uL (4.8-10.8) Red Blood Count 2.79 M/uL (4.7-6.1) Hemoglobin 8.3 g/dL (14.0-18.0) Hematocrit 24.5 % (42-52) Mean Corpuscular Volume 87.8 fL (80-100) Mean Corpuscular Hemoglobin 29.7 pg (25-34) Mean Corpuscular Hemoglobin Concent 33.9 g/dl (32-36) Platelet Count 218 K/uL (130-400) Mean Platelet Volume 10.5 fL (7.4-10.4) Neutrophils (%) (Auto) 73.8 % Lymphocytes (%) (Auto) 8.7 % Monocytes (%) (Auto) 16.3 % Eosinophils (%) (Auto) 1.0 % Basophils (%) (Auto) 0.1 % Neutrophils # (Auto) 6.11 K/uL (1.4-6.5) Lymphocytes # (Auto) 0.72 K/uL (1.2-3.4) Monocytes # (Auto) 1.35 K/uL (0.11-0.59) Eosinophils # (Auto) 0.08 K/uL (0-0.5) Basophils # (Auto) 0.01 K/uL (0-0.2) RDW Standard Deviation 49.6 fL (36.4-46.3) RDW Coefficient of Variation 15.2 % (11.5-14.5) Immature Granulocyte % (Auto) 0.1 % Immature Granulocyte # (Auto) 0.01 K/uL (0.00-0.02) Red Blood Cell Morphology Unremarkable Estimated GFR () 32.5 Estimated GFR (Non- 28.1 BUN/Creatinine Ratio 17.0 (10-20) Calcium Level 9.3 mg/dl (8.5-10.1) Total Bilirubin 0.5 mg/dl (0.2-1) Aspartate Amino Transf (AST/SGOT) 45 U/L (15-37) Alanine Aminotransferase (ALT/SGPT) 12 U/L (12-78) Alkaline Phosphatase 79 U/L (45-117) Total Creatine Kinase 389 U/L (39-308) Total Protein 6.4 gm/dl (6.4-8.2) Albumin 2.7 gm/dl (3.4-5.0) Globulin 3.7 gm/dl (2.5-4.0) Albumin/Globulin Ratio 0.7 (0.9-2) Thyroid Stimulating Hormone (TSH) 1.270 uIu/ml (0.300-4.500) Bedside Troponin I 0.020 ng/ml (0-0.045) Urine Color YELLOW Urine Appearance CLOUDY (CLEAR) Urine pH 6.0 (4.5-7.5) Urine Specific [place] 1.015 (1.000-1.030) Urine Protein 2+ (NEG) Urine Glucose (UA) NEG (NEG) Urine Ketones NEG (NEG) Urine Occult Blood 3+ (NEG) Urine Nitrite NEG (NEG) Urine Bilirubin NEG (NEG) Urine Urobilinogen NEG (NEG) Urine Leukocyte Esterase LARGE (NEG) Urine RBC >30 /hpf (0-4) Urine WBC >30 /hpf (0-5) Urine Epithelial Cells 0-5 /lpf (0-5) Urine Renal Cells 0-5 /lpf (FEW) Urine Calcium Oxalate Crystals PRESENT (NONE PRSENT) Urine Bacteria 3+ (NEG) Urine Other Casts EPITHELIAL /lpf (0) Bedside Hemoglobin 9.5 g/dl (14.0-18.0) Bedside Hematocrit 28 % (42-52) Bedside Sodium 133 mEq/L (135-144) Bedside Potassium 4.3 mEq/L (3.3-5.0) Bedside Chloride 99 mEq/L (101-112) Bedside Total CO2 20 mEq/l (24-31) Anion Gap 20.0 mmol/L (16-25) Bedside Blood Urea Nitrogen 32 mg/dl (7-18) Bedside Creatinine 2.0 mg/dl (0.6-1.3) Bedside Glucose (other) 112 mg/dl (70-99) Bedside Ionized Calcium (Mikel) 1.27 mmol/l (1.12-1.32) Creatine Kinase MB Ratio (0-3.0) Test 12/25/16 17:37 Prothrombin Time 11.3 SECONDS (9.0-12.0) Prothromb Time International Ratio 1.1 (0.9-1.1) Activated Partial Thromboplast Time 29.3 SECONDS (21.0-31.0) Partial Thromboplastin Ratio 1.1 Laboratory results reviewed by me Medications Administered Medications (Trade) Dose Ordered Sig/Clare Route Start Time Stop Time Status Last Admin Dose Admin Sodium Chloride 1,000 ml @ 125 mls/hr Q8H STAT IV 12/25/16 13:18 12/25/16 21:17 12/25/16 14:30 125 MLS/HR Sodium Chloride (Nss 500ml) 500 ml @ 999 mls/hr Q31M STAT IV 12/25/16 13:18 12/25/16 13:48 DC 12/25/16 13:48 999 MLS/HR Ceftriaxone Sodium (Rocephin Inj) 1 gm NOW STAT IV 12/25/16 16:02 12/25/16 16:03 DC 12/25/16 16:27 1 GM ECG Indication: weakness Rate (beats per minute): 72 Rhythm: normal sinus Findings: Q waves (Inferior), no acute ischemic change, no ectopy ED Course 1313: The patient was evaluated in room B3b. A complete history and physical exam was performed. 1318: NSS 500 ml @ 999 mls/hr, NSS 1000 ml @ 125 mls/hr. 1550: Discussed the case with Dr. Marquez, [facility] Hospitalist. The patient will be evaluated. Medical Decision Triage Nursing notes reviewed. The patient's presentation and history were concerning for weakness. Etiologies such as metabolic, infection, hypo/hyperglycemia, electrolyte abnormalities, cardiac sources, intracerebral event, toxicologic, neurologic, as well as others were entertained. The patient was evaluated. Blood work was obtained. ECG was normal without ischemia. His nephrostomy tubes were patent. There was concern about possible infection. A CBC revealed a mild anemia. No leukocytosis. Chemistry panel revealed an increased creatinine otherwise electrolytes were unremarkable. Urinalysis was obtained from both nephrostomy tubes. Cultures were obtained from both specimens. Urinalysis is concerning for infection. Given the patient 's symptoms inpatient treatment was felt to be most appropriate. Family was in agreement. IV Rocephin was administered. I consulted with internal medicine. The patient will be admitted for further treatment. Case management was also involved. The chart was completed utilizing [employer] Speech voice recognition software. Grammatical errors, random word insertions, pronoun errors, and incomplete sentences are an occasional consequence of this system due to software limitations, ambient noise, and hardware issues. Any formal questions or concerns about the content, text, or information contained within the body of this dictation should be directly addressed to the physician for clarification. Consults Time Called: 1540 Consulting Physician: Dr. Marquez, [facility]. Returned Call: [phone]: Discussed the case with Dr. Marquez, [facility]. The patient will be evaluated. Impression Primary Impression: UTI (urinary tract infection) Additional Impression: Weakness Scribe Attestation The scribe's documentation has been prepared under my direction and personally reviewed by me in its entirety. I confirm that the note above accurately reflects all work, treatment, procedures, and medical decision making performed by me. Departure Information Dispostion Being Evaluated By Hospitalist Referrals Jesus Stewart M.D. (PCP) Patient Instructions My [facility] Health Problem Qualifiers
[2016-12-25] MEDS: NICOTINE 7 MG/24 HR TDSY TD SCH (20:09)
[2016-12-25] MEDS: DIPYRIDAMOLE/ASPIRIN CAP PO SCH (20:48)
[2016-12-25] MEDS: CITALOPRAM 20 MG TAB PO SCH (20:48)
[2016-12-25] MEDS: SIMVASTATIN 40 MG TAB PO SCH (20:48)
[2016-12-25] MEDS: GABAPENTIN 100 MG CAP PO SCH (20:49)
[2016-12-25] MEDS: CALCIUM 600MG + VIT D 400 IU TAB PO SCH (20:49)
[2016-12-25] MEDS: ALBUTEROL HFA 8 GM INHALER INH SCH (20:50)
[2016-12-25] MEDS: HEPARIN SOD 5000 UNIT/0.5 ML CARP SQ SCH (20:51)
[2016-12-25] MEDS ORDERED: NON-FORMULARY MEDICATION (Coenzyme Q10 (Ubidecarenone) (Co Q-10) 100 MG) PO SCH (21:00)
[2016-12-25] MEDS: XTANDI PO SCH (22:00)
[2016-12-26 00:55] VITALS: BP 98/57; PULSE 65; TEMP 36.9; O2SAT 99
[2016-12-26] MEDS: DUTASTERIDE - ORDER AWAITING ACTION SCH ×3 (00:59→15:57)
[2016-12-26] MEDS: ALBUTEROL HFA 8 GM INHALER INH SCH ×4 (00:59→18:16)
[2016-12-26 07:08] VITALS: BP 121/52; PULSE 69; TEMP 36.9; O2SAT 100
[2016-12-26 08:00] VITALS: O2SAT 100
[2016-12-26] MEDS ORDERED: NON-FORMULARY MEDICATION (Biotin 1 CAP) PO SCH (08:00)
[2016-12-26] MEDS: NICOTINE 7 MG/24 HR TDSY TD SCH ×2 (08:00→09:18)
[2016-12-26] MEDS: XTANDI PO SCH ×2 (08:00→20:33)
[2016-12-26 08:19] LABS: BASO % 0.1 %; BASO ABS # 0.01 K/uL (0-0.2); EOS % 2.6 %; HEMATOCRIT 22.9 % (42-52); IG% 0.1 %; LYMPH % 15.9 %; LYMPH ABS # 1.15 K/uL (1.2-3.4); MEAN CELL VOLUME 87.1 fL (80-100); MEAN CORPUSCULAR HGB CONC 34.5 g/dl (32-36); MEAN PLATELET VOLUME 10.4 fL (7.4-10.4); MONO % 11.1 %; NEUT % 70.2 %; PLATELET COUNT 204 K/uL (130-400); RED BLOOD COUNT 2.63 M/uL (4.7-6.1); WHITE BLOOD COUNT 7.22 K/uL (4.8-10.8)
[2016-12-26 08:43] LABS: COMPLETE YES; HYPOCHROMIA PRESENT
[2016-12-26 08:54] LABS: BUN/CREATININE RATIO 17.4 (10-20); CALCIUM 9.2 mg/dl (8.5-10.1); CREATININE 2.2 mg/dl (0.60-1.40); POTASSIUM 3.7 mmol/L (3.5-5.1)
[2016-12-26] MEDS: GABAPENTIN 100 MG CAP PO SCH ×2 (08:55→20:31)
[2016-12-26] MEDS: DIPYRIDAMOLE/ASPIRIN CAP PO SCH ×2 (08:55→20:31)
[2016-12-26] MEDS: HEPARIN SOD 5000 UNIT/0.5 ML CARP SQ SCH ×2 (08:57→20:34)
[2016-12-26 09:03] VITALS: BP 118/67; PULSE 79; O2SAT 95
[2016-12-26] MEDS: CEROVITE ADV FORMULA TAB PO SCH (12:03)
--- NOTE | 2016-12-26 12:09 | Clinical Documentation Query ---
JERRY Mccullough : CLINICAL DOCUMENTATION QUERIES QUERY 1 OF 2 Patient is a 76 year old male admitted presenting with weakness, subsequently admitted with a "urinary infection in the setting of nephrostomy tubes". Although impossible to be certain, if you feel the UTI is likely or possibly a result of the presence of the nephrostomy tubes, please consider clarification as suggested below as this impacts DRG assignment. Thank you. In your clinical opinion is this patient being managed for: ( xx) UTI (likely/suspected to be/possibly) due to bilateral nephrostomy tubes ( ) Other explanation of clinical findings (Please Explain) ( ) Unable to determine (Please Define) ( ) Need to Discuss ( ) Not Agree The medical record reflects the following clinical findings, treatment, and risk factors. Clinical Indicators: As above Treatment: Urine culture, IV Rocephin Risk Factors:Percutaneous nephrostomy tubes QUERY 2 OF 2 Documentation includes "Acute on chronic renal failure with a baseline creatinine of 1.5-1.6". Associated GFR with this serum creatinine value is approximately 45 ml/min. Please explicitly specify the appropriate stage of CKD in your patient. Thank you. In your clinical opinion is this patient being managed for: ( xx ) Chronic kidney disease, stage 3 ( ) Other explanation of clinical findings (Please Explain) ( ) Unable to determine (Please Define) ( ) Need to Discuss ( ) Not Agree The medical record reflects the following clinical findings, treatment, and risk factors. Clinical Indicators: As above Treatment: IVF, serial chemistries Risk Factors: Age, prostate cancer, smoking Please clarify and document your clinical opinion in the progress notes and discharge summary. Terms such as "probable", "suspected", "likely", "questionable", "possible", or "still to be ruled out" are acceptable. IF IN AGREEMENT, YOU MUST DOCUMENT ABOVE DIAGNOSTIC STATEMENT IN DAILY PROGRESS NOTES AND DISCHARGE SUMMARY. This document is not part of the patient's record. Thank You, Emerson Gunn, MADIE [phone]
--- NOTE | 2016-12-26 12:40 | Hospitalist Progress Note ---
Hospitalist Progress Note Date of Service Dec 26, 2016. (Dee Francis PA-C) Subjective Pt evaluation today including: conversation w/ patient, conversation w/ family , physical exam, chart review, lab review, review of studies, conversation w/ pre owned sales consultant, review of inpatient medication list Still complaining of feeling confused and weak. Not sure what day it is. Denies any chest pain, dizziness, heart palpitations or shortness of breath. Denies any fever or chills. He is not complaining of any abdominal pain. Additional Comments: 6 system review negative. Please see pertinent positives in the history of present illness section. (Dee Francis PA-C) Objective Vital Signs Date Time Temp Pulse Resp B/P Pulse Ox O2 Delivery O2 Flow Rate FiO2 12/26/16 09:03 79 95 12/26/16 07:08 36.9 69 20 121/52 100 Nasal Cannula 2.0 12/26/16 00:55 36.9 65 20 98/57 99 Room Air 12/26/16 00:00 Nasal Cannula 3.0 12/25/16 17:51 97 12/25/16 17:37 101 22 132/77 95 Nasal Cannula 3.0 12/25/16 17:24 95 Nasal Cannula 3.0 12/25/16 16:34 37.7 72 21 116/59 95 Room Air 12/25/16 15:50 70 20 109/62 95 Room Air 12/25/16 13:51 67 12/25/16 13:50 67 19 105/58 95 Room Air (Dee Francis PA-C) Physical Exam General Appearance: no apparent distress (sitting up in a chair) Eyes: EOMI Neck: no JVD Respiratory/Chest: lungs clear Cardiovascular: regular rate, rhythm Abdomen: soft, + pertinent finding (mild tenderness to palpation in the suprapubic region) Extremities: non-tender, no pedal edema Neurologic/Psychiatric: + pertinent finding (alert and oriented to person and place. Confused on the day. Answers questions appropriately. No focal motor deficits noted.) Skin: warm/dry, + pertinent finding (pale) (Dee Francis PA-C) Laboratory Results Last 24 Hours Test 12/25/16 12:59 12/25/16 14:07 12/25/16 16:54 12/25/16 17:37 Bedside Troponin I 0.020 ng/ml Urine Color YELLOW Urine Appearance CLOUDY Urine pH 6.0 Urine Specific [place] 1.015 Urine Protein 2+ Urine Glucose (UA) NEG Urine Ketones NEG Urine Occult Blood 3+ Urine Nitrite NEG Urine Bilirubin NEG Urine Urobilinogen NEG Urine Leukocyte Esterase LARGE Urine RBC >30 /hpf Urine WBC >30 /hpf Urine Epithelial Cells 0-5 /lpf Urine Renal Cells 0-5 /lpf Urine Calcium Oxalate Crystals PRESENT Urine Bacteria 3+ Urine Other Casts EPITHELIAL /lpf Bedside Hemoglobin 9.5 g/dl Bedside Hematocrit 28 % Bedside Sodium 133 mEq/L Bedside Potassium 4.3 mEq/L Bedside Chloride 99 mEq/L Bedside Total CO2 20 mEq/l Anion Gap 20.0 mmol/L Bedside Blood Urea Nitrogen 32 mg/dl Bedside Creatinine 2.0 mg/dl Bedside Glucose (other) 112 mg/dl Bedside Ionized Calcium (Mikel) 1.27 mmol/l Creatine Kinase MB Ratio Prothrombin Time 11.3 SECONDS Prothromb Time International Ratio 1.1 Activated Partial Thromboplast Time 29.3 SECONDS Partial Thromboplastin Ratio 1.1 Creatine Kinase MB 1.3 ng/ml Troponin I < 0.015 ng/ml Test 12/26/16 07:45 White Blood Count 7.22 K/uL Red Blood Count 2.63 M/uL Hemoglobin 7.9 g/dL Hematocrit 22.9 % Mean Corpuscular Volume 87.1 fL Mean Corpuscular Hemoglobin 30.0 pg Mean Corpuscular Hemoglobin Concent 34.5 g/dl Platelet Count 204 K/uL Mean Platelet Volume 10.4 fL Neutrophils (%) (Auto) 70.2 % Lymphocytes (%) (Auto) 15.9 % Monocytes (%) (Auto) 11.1 % Eosinophils (%) (Auto) 2.6 % Basophils (%) (Auto) 0.1 % Neutrophils # (Auto) 5.06 K/uL Lymphocytes # (Auto) 1.15 K/uL Monocytes # (Auto) 0.80 K/uL Eosinophils # (Auto) 0.19 K/uL Basophils # (Auto) 0.01 K/uL RDW Standard Deviation 48.3 fL RDW Coefficient of Variation 15.1 % Immature Granulocyte % (Auto) 0.1 % Immature Granulocyte # (Auto) 0.01 K/uL Hypochromasia PRESENT Sodium Level 138 mmol/L Potassium Level 3.7 mmol/L Chloride Level 104 mmol/L Carbon Dioxide Level 22 mmol/L Anion Gap 12.0 mmol/L Blood Urea Nitrogen 38 mg/dl Creatinine 2.20 mg/dl Est Creatinine Clear Calc Drug Dose 34.9 ml/min Estimated GFR () 32.5 Estimated GFR (Non- 28.1 BUN/Creatinine Ratio 17.4 Random Glucose 90 mg/dl Calcium Level 9.2 mg/dl (Dee Francis PA-C) Assessment and Plan Pleasant 76-year-old male brought into the emergency department yesterday with reported confusion for approximately 1 week and progressive weakness,no focal deficits. Patient has a history of prostate cancer status post chemotherapy and radiation. Recently underwent bilateral percutaneous nephrostomy tubes (2016) at [facility]. +UTI in the ER. Episode of unresponsiveness, bradycardia and possibly heart block in the emergency department. Resolved on its own. Metabolic encephalopathy likely secondary to UTI -Continue Rocephin 1 g IV daily -Follow up urine and blood cultures ARF- ? due to infectious etiology. Baseline creatinine late last year was personally 1.5-1.7. Today 2.2. -Avoid nephrotoxic agents -Treat UTI -Daily PRP -We will hold off on further IVF for now Anemia-likely chronic disease and possibly a delusional component. No signs of GI bleeding -Given weakness, recheck H&H. We'll transfuse 1 unit if he drops further -Daily CBC -can continue aggrenox and heparin for now Episode of bradycardia, heart arrhythmia and ST elevations on EKG--? vagal episode resulting in ischemic changes on EKG vs ACS (inferior MS) -cardiology saw pt in ER--pt family not interested in cardiac cath d/t risk of worsening kidney fxn (pt not interested in HD) -continue aggrenox Hx prostate CA s/p chemo, radiation -? palliative care consult -will d/w pt and family hx TIA -continue Aggrenox BID DVT prophylaxis -Heparin 5000 u subQ BID -TEDS, SCDs CODE STATUS -LEVEL V DO NO RESUSCITATE (Dee Francis PA-C) PA Physician Supervision Note: I interviewed and examined the patient. Discussed with Dee Francis PAC and agree with findings and plan as documented in the note. Any exceptions or clarifications are listed here: None this pt is with little discomfort at present and no further cardiac symptoms did have open discussion about hospice, pt was tearful vss car is reg with murmur lungs are clear abd soft with b/l nephrostomy tubes treat for UTi poa from associated nephrostomy tubes, await sensitivities brachycardia and profound ischemia, likely vagal no intervention requested by family later in afternoon I spent 50 minutes counselling face to face with family and patient for 70 minutes total today with this patient and the family. The daughter who is a nurse at [employer] was initially upset feeling we were not supportive of the pt going there for rehab. I reinforced the pt did request to go home and not to [facility], we had discussion in private with daughter and and also with patient and both. Patient will agree to speak to hospice but not yet decided on enrolling, still deciding on disposition [place] Documented By: Marco Mahajan (Marco Mahajan M.D.)
--- NOTE | 2016-12-26 12:51 | Clinical Documentation Query ---
CYRUS MCCARTHY : CLINICAL DOCUMENTATION QUERIES QUERY 1 OF 2 Patient is a 76 year old male admitted presenting with weakness, subsequently admitted with a "urinary infection in the setting of nephrostomy tubes". Although impossible to be certain, if you feel the UTI is likely or possibly a result of the presence of the nephrostomy tubes, please consider clarification as suggested below as this impacts DRG assignment. Thank you. In your clinical opinion is this patient being managed for: ( X ) UTI (likely/suspected to be) due to bilateral nephrostomy tubes ( ) Other explanation of clinical findings (Please Explain) ( ) Unable to determine (Please Define) ( ) Need to Discuss ( ) Not Agree The medical record reflects the following clinical findings, treatment, and risk factors. Clinical Indicators: As above Treatment: Urine culture, IV Rocephin Risk Factors:Percutaneous nephrostomy tubes QUERY 2 OF 2 Documentation includes "Acute on chronic renal failure with a baseline creatinine of 1.5-1.6". Associated GFR with this serum creatinine value is approximately 45 ml/min. Please explicitly specify the appropriate stage of CKD in your patient. Thank you. In your clinical opinion is this patient being managed for: ( ) Chronic kidney disease, stage 3 ( ) Other explanation of clinical findings (Please Explain) ( ) Unable to determine (Please Define) ( X ) Need to Discuss ( ) Not Agree The medical record reflects the following clinical findings, treatment, and risk factors. Clinical Indicators: As above Treatment: IVF, serial chemistries Risk Factors: Age, prostate cancer, smoking Please clarify and document your clinical opinion in the progress notes and discharge summary. Terms such as "probable", "suspected", "likely", "questionable", "possible", or "still to be ruled out" are acceptable. IF IN AGREEMENT, YOU MUST DOCUMENT ABOVE DIAGNOSTIC STATEMENT IN DAILY PROGRESS NOTES AND DISCHARGE SUMMARY. This document is not part of the patient's record. Thank You, Emerson Gunn, RN [phone]
[2016-12-26 15:25] VITALS: BP 107/63; PULSE 70; TEMP 36.3; O2SAT 98
[2016-12-26] MEDS: CEFTRIAXONE SOD INJ 1 GM in DEXTROSE 5% ADD-VANTAGE 50ML 50 ML IV SCH (15:57)
[2016-12-26] MEDS ORDERED: NURSING DECISION MEDICATION ORDER SCH (17:30)
[2016-12-26] MEDS: CALCIUM 600MG + VIT D 400 IU TAB PO SCH (20:31)
[2016-12-26] MEDS: CITALOPRAM 20 MG TAB PO SCH (20:32)
[2016-12-26] MEDS: SIMVASTATIN 40 MG TAB PO SCH (20:32)
[2016-12-26 23:42] VITALS: BP 118/60; PULSE 75; TEMP 37.6; O2SAT 96
[2016-12-27 00:05] VITALS: O2SAT 95
[2016-12-27] MEDS: DUTASTERIDE - ORDER AWAITING ACTION SCH ×4 (00:37→23:34)
[2016-12-27] MEDS: ALBUTEROL HFA 8 GM INHALER INH SCH ×5 (06:22→23:34)
[2016-12-27 08:51] VITALS: BP 122/64; PULSE 67; TEMP 37; O2SAT 97
[2016-12-27] MEDS: GABAPENTIN 100 MG CAP PO SCH ×2 (08:52→19:56)
[2016-12-27] MEDS: DIPYRIDAMOLE/ASPIRIN CAP PO SCH ×2 (08:52→19:57)
[2016-12-27] MEDS: NICOTINE 7 MG/24 HR TDSY TD SCH (08:53)
[2016-12-27] MEDS: HEPARIN SOD 5000 UNIT/0.5 ML CARP SQ SCH ×2 (08:55→19:58)
[2016-12-27 09:15] LABS: BASO % 0.2 %; BASO ABS # 0.01 K/uL (0-0.2); EOS % 2.1 %; HEMATOCRIT 23.6 % (42-52); IG% 0.2 %; LYMPH % 14.3 %; LYMPH ABS # 0.74 K/uL (1.2-3.4); MEAN CELL VOLUME 86.4 fL (80-100); MEAN CORPUSCULAR HEMOGLOBIN 29.3 pg (25-34); MEAN PLATELET VOLUME 9.5 fL (7.4-10.4); NEUT % 71.2 %; PLATELET COUNT 247 K/uL (130-400); RED BLOOD COUNT 2.73 M/uL (4.7-6.1); WHITE BLOOD COUNT 5.16 K/uL (4.8-10.8)
[2016-12-27 09:26] LABS: MEAN CORPUSCULAR HGB CONC 33.9 g/dl (32-36)
[2016-12-27 09:42] LABS: COMPLETE YES
[2016-12-27 09:49] LABS: BUN/CREATININE RATIO 17.8 (10-20); CALCIUM 9.2 mg/dl (8.5-10.1); CREATININE 1.9 mg/dl (0.60-1.40); POTASSIUM 3.4 mmol/L (3.5-5.1)
--- NOTE | 2016-12-27 12:52 | Hospitalist Progress Note ---
Hospitalist Progress Note Date of Service Dec 27, 2016. (Dee Francis PA-C) Subjective Pt evaluation today including: conversation w/ patient, physical exam, chart review, lab review, review of inpatient medication list Patient feeling better today. Feels less confused. Denies any fever or chills. No pain. Denies any chest pain or pressure. No shortness of breath or dyspnea. No heart palpitations. Denies any dizziness. Additional Comments: 6 system review negative. Please see pertinent positives in the history of present illness section. (Dee Francis PA-C) pt feels well ambulating without issues, family has arranged for subacute rehab at [facility] (Marco Mahajan M.D.) Objective Vital Signs Date Time Temp Pulse Resp B/P Pulse Ox O2 Delivery O2 Flow Rate FiO2 12/27/16 08:51 37.0 67 13 122/64 97 Room Air 12/27/16 08:50 Room Air 12/27/16 00:05 95 Room Air 12/26/16 23:42 37.6 75 20 118/60 96 Room Air 12/26/16 16:00 Room Air 12/26/16 15:25 36.3 70 20 107/63 98 Room Air (Dee Francis PA-C) Physical Exam General Appearance: no apparent distress Eyes: EOMI Neck: no JVD Respiratory/Chest: lungs clear Cardiovascular: regular rate, rhythm Abdomen: normal bowel sounds, soft, + pertinent finding (again mild tenderness in the suprapubic region) Extremities: non-tender, no pedal edema Neurologic/Psychiatric: no motor/sensory deficits Skin: warm/dry Notes: No erythema noted around the percutaneous nephrostomy tubes bilaterally. (Dee Francis PA-C) General Appearance: WD/WN, no apparent distress Neck: supple, no JVD Respiratory/Chest: chest non-tender, lungs clear, normal breath sounds Cardiovascular: regular rate, rhythm, no JVD Abdomen: normal bowel sounds, soft Extremities: no pedal edema, no calf tenderness Neurologic/Psychiatric: alert, oriented x 3 (Marco Mahajan M.D.) Laboratory Results Last 24 Hours Test 12/27/16 09:05 White Blood Count 5.16 K/uL Red Blood Count 2.73 M/uL Hemoglobin 8.0 g/dL Hematocrit 23.6 % Mean Corpuscular Volume 86.4 fL Mean Corpuscular Hemoglobin 29.3 pg Mean Corpuscular Hemoglobin Concent 33.9 g/dl Platelet Count 247 K/uL Mean Platelet Volume 9.5 fL Neutrophils (%) (Auto) 71.2 % Lymphocytes (%) (Auto) 14.3 % Monocytes (%) (Auto) 12.0 % Eosinophils (%) (Auto) 2.1 % Basophils (%) (Auto) 0.2 % Neutrophils # (Auto) 3.67 K/uL Lymphocytes # (Auto) 0.74 K/uL Monocytes # (Auto) 0.62 K/uL Eosinophils # (Auto) 0.11 K/uL Basophils # (Auto) 0.01 K/uL RDW Standard Deviation 46.8 fL RDW Coefficient of Variation 14.8 % Immature Granulocyte % (Auto) 0.2 % Immature Granulocyte # (Auto) 0.01 K/uL Red Blood Cell Morphology Unremarkable Sodium Level 138 mmol/L Potassium Level 3.4 mmol/L Chloride Level 102 mmol/L Carbon Dioxide Level 24 mmol/L Anion Gap 12.0 mmol/L Blood Urea Nitrogen 34 mg/dl Creatinine 1.90 mg/dl Est Creatinine Clear Calc Drug Dose 40.4 ml/min Estimated GFR () 38.8 Estimated GFR (Non- 33.5 BUN/Creatinine Ratio 17.8 Random Glucose 108 mg/dl Calcium Level 9.2 mg/dl (Dee Francis, PAMickeyC) Assessment and Plan Pleasant 76-year-old male brought into the emergency department 12/25 with reported confusion for approximately 1 week and progressive weakness,no focal deficits. Patient has a history of prostate cancer status post chemotherapy and radiation. Recently underwent bilateral percutaneous nephrostomy tubes (2016) at [facility]. +UTI in the ER. Episode of unresponsiveness, bradycardia and possibly heart block in the emergency department. Resolved on its own. Metabolic encephalopathy likely secondary to UTI-preliminary cultures consistent with staph aureus--> improving -Continue Rocephin 1 g IV -Follow cultures closely-? MRSA -Hold off on MRSA coverage for now as the patient appears to be clinically improving ARF/chronic kidney disease stage III-likely due to infectious etiology. Baseline creatinine late last year was 1.5-1.7. Creatinine improving today 1.9 -cont tx UTI Anemia-likely chronic disease and possibly a delusional component. No signs of GI bleeding -Hbg stable at 8.0 Episode of bradycardia, heart arrhythmia and ST elevations on EKG--? vagal episode resulting in ischemic changes on EKG vs ACS (inferior KS) -cardiology saw pt in ER--pt family not interested in cardiac cath d/t risk of worsening kidney fxn (pt not interested in HD) -no further episodes -continue aggrenox Hx prostate CA s/p chemo, radiation-progressive dz -f/u heme/onc hx TIA -continue Aggrenox BID DVT prophylaxis -Heparin 5000 u subQ BID -TEDS, SCDs CODE STATUS -LEVEL V DO NO RESUSCITATE (Dee Francis, PAMickeyC) 76 M with metastatic prostate cancer, b/l ureteral obstructuions, with staph uti poa associated with his bilateral nephrostomy tubes maintain ceftriaxone until culture results return did have cardiac event, maybe severe vagal, resolved, continue Aggrenox and zocor, supportive care DNR for rehab (Marco Mahajan M.D.)
[2016-12-27] MEDS: CEROVITE ADV FORMULA TAB PO SCH (12:56)
[2016-12-27] MEDS ORDERED: POTASSIUM CHLORIDE 20 MEQ TABCR PO ONE (14:00)
[2016-12-27 15:33] VITALS: BP 125/67; PULSE 69; TEMP 36.4; O2SAT 95
[2016-12-27] MEDS ORDERED: LORAZEPAM 2 MG/ML 1 ML VIAL IV PRN (16:00)
[2016-12-27] MEDS ORDERED: LORAZEPAM INJ 0.5 MG in SYRINGE 0.75 ML IV PRN (16:00)
[2016-12-27] MEDS ORDERED: LORAZEPAM 0.5 MG TAB PO PRN (16:00)
[2016-12-27] MEDS: CEFTRIAXONE SOD INJ 1 GM in DEXTROSE 5% ADD-VANTAGE 50ML 50 ML IV SCH (16:47)
[2016-12-27] MEDS: CALCIUM 600MG + VIT D 400 IU TAB PO SCH (19:56)
[2016-12-27] MEDS: SIMVASTATIN 40 MG TAB PO SCH (19:56)
[2016-12-27] MEDS: CITALOPRAM 20 MG TAB PO SCH (19:56)
[2016-12-27] MEDS: XTANDI PO SCH (19:56)
[2016-12-27 21:10] LABS: MANUAL MICROSCOPIC REQUIRED? NO; REVIEW REQ? NO; URINE APPEARANCE CLEAR (CLEAR); URINE BILIRUBIN NEG (NEG); URINE COLOR YELLOW; URINE EPITHELIAL CELL AUTO 0-5 /lpf (0-5); URINE NITRITE NEG (NEG); URINE SPECIFIC GRAVITY 1.007 (1.000-1.030); UROBILINOGEN NEG (NEG)
[2016-12-27 23:33] VITALS: BP 138/69; PULSE 78; TEMP 37; O2SAT 96
[2016-12-28] MEDS: ALBUTEROL HFA 8 GM INHALER INH SCH ×2 (05:32→13:07)
[2016-12-28 05:50] LABS: BASO % 0.4 %; BASO ABS # 0.02 K/uL (0-0.2); EOS % 3.2 %; HEMATOCRIT 24.2 % (42-52); IG% 0.2 %; LYMPH % 22.8 %; LYMPH ABS # 1.23 K/uL (1.2-3.4); MEAN CELL VOLUME 87.7 fL (80-100); MEAN CORPUSCULAR HGB CONC 33.1 g/dl (32-36); MEAN PLATELET VOLUME 9.4 fL (7.4-10.4); MONO % 12.4 %; PLATELET COUNT 288 K/uL (130-400); RED BLOOD COUNT 2.76 M/uL (4.7-6.1); WHITE BLOOD COUNT 5.39 K/uL (4.8-10.8)
[2016-12-28 06:16] LABS: BUN/CREATININE RATIO 19.2 (10-20); CALCIUM 9.4 mg/dl (8.5-10.1); CREATININE 1.9 mg/dl (0.60-1.40); POTASSIUM 3.8 mmol/L (3.5-5.1)
[2016-12-28 06:26] LABS: COMPLETE YES
[2016-12-28] MEDS: GABAPENTIN 100 MG CAP PO SCH (07:43)
[2016-12-28] MEDS: DIPYRIDAMOLE/ASPIRIN CAP PO SCH (07:43)
[2016-12-28] MEDS: DUTASTERIDE - ORDER AWAITING ACTION SCH (07:43)
[2016-12-28] MEDS: HEPARIN SOD 5000 UNIT/0.5 ML CARP SQ SCH (07:46)
[2016-12-28 07:48] VITALS: BP 144/74; PULSE 73; TEMP 36.9; O2SAT 97
[2016-12-28] MEDS ORDERED: DAPTOmycin IV 400 MG in SODIUM CHLORIDE 0.9% 50ML 50 ML IV SCH (08:30)
[2016-12-28] MEDS ORDERED: DAPT500I IV (12:46)
[2016-12-28] MEDS ORDERED: ATV5 PO (12:46)
--- NOTE | 2016-12-28 12:50 | Discharge Instructions ---
Discharge Instructions Admission Reason for Admission: Urinary Catheter Infection Discharge Discharge Diagnosis / Problem: complicated urinary tract infection Discharge Goals Goal(s): Decrease discomfort, Improve function Activity Recommendations Activity Level: Up [place]i Therapies: Physical Therapy, Occupational Therapy . Additional Information Patient informed of condition: Yes Advance Directives: Yes DNR: Yes Level of Care: Skilled Communicable Disease: Yes Prognosis: Stable Rodriguez Catheter: Yes (bilateral percutaneous nephrostomy) Current Hospital Diet Patient's current hospital diet: AHA Diet (Heart Healthy) Discharge Diet Recommended Diet: Regular Diet Pending Studies Studies pending at discharge: yes List of pending studies: repeat cultures Physician Orders On Transfer POLST Discussion: without POLST completion Medical Emergencies . Who to Call and When: Medical Emergencies: If at any time you feel your situation is an emergency, please call 911 immediately. . Non-Emergent Contact Non-Emergency issues call your: Primary Care Provider, Oncologist Call Non-Emergent contact if: temperature is above 101 . . "Provider Documentation" section prepared by Marco Mahajan. Core Measure Problem Core Measures: None [place] Drug Monitoring Program Search Results: patient reviewed within database
[2016-12-28] MEDS: CEROVITE ADV FORMULA TAB PO SCH (13:06)
[2016-12-28 13:34] VITALS: BP 144/74; PULSE 73; TEMP 36.9; O2SAT 97
--- NOTE | 2016-12-28 18:59 | Discharge Summary ---
Discharge Summary Admission Date: Dec 25, 2016 at 16:18 Discharge Date: Dec 28, 2016 Discharge Disposition: [facility] facility Principal Diagnosis: mrsa pyelonephritis from percutaneuos nephrostomy tubes poa Medication Reconciliation New Medications: Daptomycin (Daptomycin) 500 Mg Inj 400 MG IV DAILY for 9 Days Lorazepam (Lorazepam) 0.5 Mg Tab 0.5 MG PO Q6 PRN for Anxiety, #20 TAB Continued Medications: Albuterol Hfa (Ventolin Hfa) 200 Puffs/91516 Mcg Aers 2-4 PUFFS INH Q6H, #1 INHALER Alendronate Sodium (Alendronate Sodium) 70 Mg Tab 70 MG PO WK Friday Biotin (Biotin) 5 Mg Tab 1 CAP PO DAILY Calcium Carbonate-Vitamin D (Calcium 500 + D) 1 Tab Tab 1 TAB PO QPM Citalopram Hydrobromide (Celexa) 10 Mg Tab 10 MG PO QPM, TAB Coenzyme Q10 (Ubidecarenone) (Co Q-10) 100 Mg Cap 100 MG PO QPM Dipyridamole/Aspirin (Aggrenox 25-200 mg) 1 Cap Cap 1 CAP PO BID, CAP Dutasteride (Dutasteride) 0.5 Mg Cap 0.5 MG PO QAM Enzalutamide (Xtandi) 40 Mg Cap 4 TABS PO DAILY Fish Oil (Chemult-3) 1 Ea Cap 1 CAP PO DAILY, CAP Gabapentin (Neurontin) 100 Mg Cap 200 MG PO BID, CAP Leuprolide Acetate (Lupron Depot) 30 Mg Kit 1 DOSE INJ [id number] LAST DOSE 1 MONTH AGO Multiple Vitamins W/ Minerals (Ocuvite Lutein) 1 Cap Cap 1 CAP PO NOON Simvastatin (Simvastatin) 40 Mg Tab 40 MG PO QPM Tramadol (Ultram) 50 Mg Tab 100 MG PO QID PRN for Pain, TAB Umeclidinium-Vilanterol (Anoro Ellipta 62.5-25 Mcg/INH) 1 Aer Aer 1 PUFF INH DAILY Vitamin B Complex (Vitamin B Complex) 1 Tab Tab 1 TAB PO NOON Discharge Exam Review of Systems: Constitutional: No chills, No fever Respiratory: No cough, No dyspnea on exertion, No sputum Cardiovascular: No chest pain, No edema Abdomen: No diarrhea, No nausea, No pain Musculoskeletal: No joint pain, No muscle pain, No swelling Physical Exam: General Appearance: WD/WN, no apparent distress Neck: supple, no JVD Respiratory/Chest: chest non-tender, lungs clear, normal breath sounds Cardiovascular: regular rate, rhythm, no murmur Abdomen / GI: normal bowel sounds, non tender, soft Extremities: no pedal edema, normal range of motion Hospital Course 76 M with metastatic prostate cancer, b/l ureteral obstructions, with staph uti poa associated with his bilateral nephrostomy tubes oxacillin resistant coag negative staph, sensitive to daptomycin, will treat total of 10 days, will give via a port did have cardiac event, maybe severe vagal, resolved, continue Aggrenox and zocor, supportive care we did discuss hospice care with family during this stay and they are not ready for this DNR [facility] for subacute rehab Total Time Spent: Greater than 30 minutes This includes examination of the patient, discharge planning, medication reconciliation, and communication with other providers. Discharge Instructions Please refer to the electronic Patient Visit Report (Discharge Instructions) for additional information.
== END 2016-12-28 14:49 | DRG 698 ==
LOC: ENRESERVTM → ENRESERVDT → C.EDB 11:31 → C.4E 16:18 → EDBEDREQSVC 17:15
PROVIDERS: ADMIT Hospitalist; ATTEND Hospitalist
DX: T83.512A Infection and inflammatory reaction due to nephrostomy catheter, initial encounter (principal); G93.41 Metabolic encephalopathy; N12 Tubulo-interstitial nephritis, not specified as acute or chronic; N17.9 Acute kidney failure, unspecified; Z51.5 Encounter for palliative care; Z85.46 Personal history of malignant neoplasm of prostate; F17.210 Nicotine dependence, cigarettes, uncomplicated; N18.9 Chronic kidney disease, unspecified; Z66 Do not resuscitate; Z86.73 Personal history of transient ischemic attack (TIA), and cerebral infarction without residual deficits; N13.5 Crossing vessel and stricture of ureter without hydronephrosis; B95.8 Unspecified staphylococcus as the cause of diseases classified elsewhere; Z92.3 Personal history of irradiation; R00.1 Bradycardia, unspecified; R55 Syncope and collapse; Y92.009 Unspecified place in unspecified non-institutional (private) residence as the place of occurrence of the external cause; Y83.1 Surgical operation with implant of artificial internal device as the cause of abnormal reaction of the patient, or of later complication, without mention of misadventure at the time of the procedure

== ENCOUNTER → 2017-01-15 | Outpatient (CLI) | payer OTHER ==
[~2017-01-15] MED LIST changes: -ALBUAER19 INH; -ALEN70TA2 PO; +ATV5 PO; +BIOT1TAB2 PO; -BIOTCAP2 PO; -CALC600T9 PO; +CALCTAB65 PO; +DAPT500I IV; +FSM70 PO; -GLUCTAB7 PO; -HYDR2.5C37 TOP; -MULT-506 PO; -PSYL55.43 PO; +VNTHFA/IN INH
[2017-01-15 18:20] LABS: BASO % 0.4 %; BASO ABS # 0.02 K/uL (0-0.2); COMPLETE YES; EOS % 5.3 %; IG% 0.2 %; LYMPH ABS # 1.68 K/uL (1.2-3.4); MEAN CELL VOLUME 89.5 fL (80-100); MEAN CORPUSCULAR HEMOGLOBIN 28.7 pg (25-34); MEAN CORPUSCULAR HGB CONC 32.1 g/dl (32-36); MEAN PLATELET VOLUME 9.6 fL (7.4-10.4); MONO % 11.8 %; NEUT % 50.3 %; PLATELET COUNT 378 K/uL (130-400); RED BLOOD COUNT 3.24 M/uL (4.7-6.1); WHITE BLOOD COUNT 5.25 K/uL (4.8-10.8)
[2017-01-15 18:23] LABS: BLOOD UREA NITROGEN 31 mg/dl (7-18); BUN/CREATININE RATIO 12.8 (10-20); CALCIUM 9.6 mg/dl (8.5-10.1); CARBON DIOXIDE 26 mmol/L (21-32); CHLORIDE 105 mmol/L (98-107); GLUCOSE 95 mg/dl (70-99); POTASSIUM 4.6 mmol/L (3.5-5.1); SODIUM 140 mmol/L (136-145)
== END | disposition home or self-care (01) ==
LOC: C.LABMFLN 10:13
PROVIDERS: ATTEND Family Medicine
DX: N18.3 Chronic kidney disease, stage 3 (moderate) (principal); D63.8 Anemia in other chronic diseases classified elsewhere

== ENCOUNTER → 2017-01-30 | Outpatient (CLI) | payer OTHER ==
[2017-01-30 18:05] LABS: URINE APPEARANCE TURBID (CLEAR); URINE BILIRUBIN NEG (NEG); URINE COLOR YELLOW; URINE EPITHELIAL CELL AUTO 20-30 /lpf (0-5); URINE NITRITE NEG (NEG); URINE SPECIFIC GRAVITY 1.014 (1.000-1.030); UROBILINOGEN NEG (NEG)
[2017-01-30 18:09] LABS: MANUAL MICROSCOPIC REQUIRED? NO; REVIEW REQ? YES
== END | disposition home or self-care (01) ==
LOC: C.LABMFLN 10:44
PROVIDERS: ATTEND Family Medicine
DX: R39.9 Unspecified symptoms and signs involving the genitourinary system (principal)